=== PATIENT | female | born 1990 | race Caucasian/White ===

== ENCOUNTER 2017-06-04 20:21 | Emergency (ER) | payer MEDICAID ==
[2017-06-04] MEDS ORDERED: PROVENTIL 2.5 MG/3 ML NEB IH ONE ×2 (20:44→20:58)
[2017-06-04] MEDS ORDERED: BENADRYL 50 MG/ML IM ONE (20:44)
[2017-06-04] MEDS ORDERED: Pepcid 20 MG PO ONE (20:44)
[2017-06-04] MEDS ORDERED: MOTRIN 600 MG PO ONE (20:44)
[2017-06-04] MEDS ORDERED: MOTRIN 600 MG ONE (20:47)
[2017-06-04] MEDS ORDERED: Pepcid 20 MG ONE (20:47)
[2017-06-04] MEDS ORDERED: BENADRYL 50 MG/ML ONE (20:47)
--- NOTE | 2017-06-04 20:50 | ERPHSYRPT ---
- History of Present Illness Time Seen by Provider: 06/04/17 20:39 Source: patient, family Patient Subjective Stated Complaint: pt states she was stung multiple times by bees while getting firewood. Triage Nursing Assessment: pt alert and oriented, asnwers questions approp. pt ambulatory with limping gait noted. respirations nonlabored with lungs cta. red swollen area noted above rt knee, rt lateral upper thing, rt upper arm and rt axilla, rt face. Physician History: CC: bee stings hX: 26 y/o patient with prior hx of swelling from bee stings. She was stung by bees that came out of a wood pile this evening. She has stings on right arm, leg , neck. No diff breathing but has recent cold symptoms and is a smoker. She has no V/D. Some itching, pain and swelling at the sting sites. LMP last month and states not . Allergic to some unknown abtx. Timing/Duration: today Quality: itchy, painful Severity: moderate Allergies/Adverse Reactions: linaclotide [From Linzess] Allergy (Verified 06/04/17 20:46) unknown antibiotics Allergy (Uncoded 06/04/17 20:46) Hx Tetanus, Diphtheria Vaccination/Date Given: Yes (2014) Hx Influenza Vaccination/Date Given: No Hx Pneumococcal Vaccination/Date Given: No Immunizations Up to Date: Yes - Review of Systems Constitutional: No Fever, No Chills Eyes: No Symptoms Ears, Nose, & Throat: No Mouth Swelling Respiratory: No Dyspnea, No Wheezing Cardiac: No Chest Pain Abdominal/Gastrointestinal: No Abdominal Pain, No Nausea, No Vomiting, No Diarrhea Skin: Pruritis, Skin Lesions Neurological: No Headache All Other Systems: Reviewed and Negative - Past Medical History Pertinent Past Medical History: No - Past Surgical History Past Surgical History: Yes Gastrointestinal: Cholecystectomy Female Surgical History: Other Other Surgical History: rt ovarian cyst removed - Social History Smoking Status: Current every day smoker How long have you smoked: 10 Exposure to second hand smoke: Yes Drug Use: none Patient Lives Alone: No - Female History Hx Last Menstrual Period: end of last month - Nursing Vital Signs Nursing Vital Signs: Initial Vital Signs Temperature 97.8 F 06/04/17 20:30 Pulse Rate 102 H 06/04/17 20:30 Respiratory Rate 20 06/04/17 20:30 Blood Pressure 136/66 06/04/17 20:30 O2 Sat by Pulse Oximetry 99 06/04/17 20:30 Pain Scale Pain Intensity 0 - Physical Exam General Appearance: alert Eye Exam: PERRL/EOMI Ears, Nose, Throat Exam: normal ENT inspection, moist mucous membranes, other ( no swelling of mucous membranes) Neck Exam: normal inspection, non-tender, supple Respiratory Exam: wheezing (rare, no distress) Cardiovascular Exam: regular rate/rhythm Gastrointestinal/Abdomen Exam: soft, No tenderness, No distention Back Exam: normal inspection, normal range of motion Extremity Exam: normal range of motion Neurologic Exam: alert, oriented x 3, cooperative, sensation nml, No motor deficits Skin Exam: warm, dry, other (multiple sting sites right arm, leg, neck. The inner upper right arm is red and swollen with moderately severe local reaction.) SpO2 Interpretation: normal SpO2: 99 Oxygen Delivery: Room Air - Course Nursing assessment & vital signs reviewed: Yes Ordered Tests: Active Orders 24 hr Category Date Time Status Respiratory Nebulizer STAT RT 06/04/17 20:45 Completed Medication Summary Discontinued Medications Generic Name Dose Route Start Last Admin Trade Name Freq PRN Reason Stop Dose Admin Albuterol Sulfate 2.5 mg 06/04/17 20:44 06/04/17 20:59 Proventil 2.5 Mg/3 Ml Neb IH 06/04/17 20:45 2.5 mg STAT ONE Administration Albuterol Sulfate Confirm 06/04/17 20:58 Proventil 2.5 Mg/3 Ml Neb Administered 06/04/17 20:59 Dose 2.5 mg IH .STK-MED ONE Diphenhydramine HCl 50 mg 06/04/17 20:44 06/04/17 20:49 Benadryl 50 Mg/Ml IM 06/04/17 20:45 50 mg STAT ONE Administration Diphenhydramine HCl Confirm 06/04/17 20:47 Benadryl 50 Mg/Ml Administered 06/04/17 20:48 Dose 50 mg .ROUTE .STK-MED ONE Famotidine 20 mg 06/04/17 20:44 06/04/17 20:49 Pepcid 20 Mg PO 06/04/17 20:45 20 mg STAT ONE Administration Famotidine Confirm 06/04/17 20:47 Pepcid 20 Mg Administered 06/04/17 20:48 Dose 20 mg .ROUTE .STK-MED ONE Ibuprofen 600 mg 06/04/17 20:44 06/04/17 20:48 Motrin 600 Mg PO 06/04/17 20:45 600 mg STAT ONE Administration Ibuprofen Confirm 06/04/17 20:47 Motrin 600 Mg Administered 06/04/17 20:48 Dose 600 mg .ROUTE .STK-MED ONE - Progress Progress Note: 06/04/17 20:49 The patient appears to have local reaction to bee stings. Will give benadryl and pepcid and motrin and watch for a period of ER observation. No signo of systemic reaction at this time. Plan explained to pt and familky. 06/04/17 21:40 She was given motrin and benadryl and now feels better. No sign of systemic reaction. Will release with sting instructions. Counseled pt/family regarding: diagnosis, need for follow-up - Departure Time of Disposition: 21:40 Departure Disposition: Home Clinical Impression: Accidental bee sting Condition: Stable Critical Care Time: No Referrals: ALEKSANDRA GUTIERREZ [Primary Care Provider] - Instructions: Insect Bites and Stings Additional Instructions: Benadryl=diphenhydramine 50mg every 6 hours- no driving. Calamine lotion. Ibuprofen for discomfort. Return for difficulty breathing, concerns. Prescriptions: Diphenhydramine HCl 50 mg PO Q6H PRN PRN #20 capsule PRN Reason: bee sting Ibuprofen 600 mg PO Q6H PRN PRN #20 tablet PRN Reason: Pain
[2017-06-04] MEDS ORDERED: BENADRYL 25 MG CAPSULE ONE (21:47)
[2017-06-04] MEDS: BENADRYL 25 MG CAPSULE PO ONE ×2 (21:49→21:50)
[2017-06-04 21:54] VITALS: BP 108/67; PULSE 102; O2SAT 98
== END 2017-06-04 21:54 | disposition home or self-care (01) ==
LOC: ED 20:21
DX: T63.441A Toxic effect of venom of bees, accidental (unintentional), initial encounter (principal)
CPT/HCPCS: 94640; 96372; 99283; 99284; J1200; A9270-GY

== ENCOUNTER 2017-09-01 13:42 | Emergency (ER) | payer MEDICARE ==
[2017-09-01] MEDS ORDERED: Sodium Chloride 0.9% 1000 ML 1,000 ML IV STA (14:06)
[2017-09-01 14:08] LABS: Appearance CLEAR (CLEAR); Glucose NEGATIVE (NEGATIVE); Ketones NEGATIVE (NEGATIVE); Leukocyte Esterase NEGATIVE (NEGATIVE); Nitrite NEGATIVE (NEGATIVE); Protein,Urine Dip NEGATIVE (Negative); Specific Gravity 1.005 (1.005-1.025)
[2017-09-01] MEDS ORDERED: Sodium Chloride 0.9% 1000 ML 1,000 ML ONE (14:08)
[2017-09-01 14:09] LABS: Bilirubin NEGATIVE (NEGATIVE); Blood NEGATIVE Ery/ul (0-5); Urobilinogen NORMAL mg/dL (0-1)
--- NOTE | 2017-09-01 14:09 | ERPHSYRPT ---
- History of Present Illness Time Seen by Provider: 09/01/17 13:56 Historian: patient, family (father) Patient Subjective Stated Complaint: pt here for left sided abd pain that radiates to left flank area Triage Nursing Assessment: pt alert, walked in, resp easy, skin w/d pink, abd soft Physician History: CC: left side pain Hx: 26 y/o healthy patient with prior ovarian cyst and cholecystectomy. She has left flank and abd pain since yesterday. She has urinary frequency and urgency with little urination. No fever. Vomited once yesterday. Sick taste in her mouth. LMP in Jul. Allergies/Adverse Reactions: amoxicillin Allergy (Verified 09/01/17 13:59) clarithromycin [From Biaxin] Allergy (Verified 09/01/17 13:59) dicyclomine Allergy (Verified 09/01/17 13:59) fluconazole [From Diflucan] Allergy (Verified 09/01/17 13:59) glycopyrrolate Allergy (Verified 09/01/17 13:59) linaclotide [From Linzess] Allergy (Verified 06/04/17 20:46) metronidazole [From Flagyl] Allergy (Verified 09/01/17 13:59) Hx Tetanus, Diphtheria Vaccination/Date Given: Yes (2014) Hx Influenza Vaccination/Date Given: Yes Hx Pneumococcal Vaccination/Date Given: No Immunizations Up to Date: Yes - Review of Systems Constitutional: Malaise, No Fever, No Chills Eyes: No Symptoms Ears, Nose, & Throat: No Symptoms Respiratory: No Cough, No Dyspnea Cardiac: No Chest Pain Abdominal/Gastrointestinal: Abdominal Pain, Nausea, Vomiting (X1 yesterday), No Diarrhea Genitourinary Symptoms: Frequency, Hesitancy, Urgency, No Dysuria, No , No Vaginal Bleeding Musculoskeletal: No Back Pain Skin: No Rash Neurological: No Headache All Other Systems: Reviewed and Negative - Past Medical History Pertinent Past Medical History: No - Past Surgical History Past Surgical History: Yes Gastrointestinal: Cholecystectomy Female Surgical History: Other Other Surgical History: rt ovarian cyst removed - Social History Smoking Status: Current every day smoker How long have you smoked: 10 Exposure to second hand smoke: Yes Drug Use: none Patient Lives Alone: No - Female History Hx Last Menstrual Period: dec Hx Now: (HCG pending) - Nursing Vital Signs Nursing Vital Signs: Initial Vital Signs Temperature 97.2 F 09/01/17 13:46 Pulse Rate 76 09/01/17 13:46 Respiratory Rate 18 09/01/17 13:46 Blood Pressure 125/77 09/01/17 13:46 O2 Sat by Pulse Oximetry 99 09/01/17 13:46 Pain Scale Pain Intensity 7 - Physical Exam General Appearance: alert, thin Eye Exam: PERRL/EOMI Ears, Nose, Throat Exam: normal ENT inspection, moist mucous membranes Neck Exam: normal inspection, non-tender, supple Respiratory Exam: normal breath sounds Cardiovascular Exam: regular rate/rhythm Gastrointestinal/Abdomen Exam: soft, tenderness (left mild), No distention, No mass, No guarding Back Exam: CVA tenderness (left), No rash Extremity Exam: normal inspection, normal range of motion Neurologic Exam: alert, oriented x 3, cooperative, sensation nml, No motor deficits Skin Exam: warm, dry, No rash SpO2 Interpretation: normal SpO2: 99 Oxygen Delivery: Room Air - Course Nursing assessment & vital signs reviewed: Yes - CT Exams abd/pelvis CT Interpretation: Negative (fecal stasis), Tele-radiologist Report Ordered Tests: Active Orders 24 hr Category Date Time Status IV Insertion STAT Care 09/01/17 14:06 Active ABDOMEN AND PELVIS W/0 CONTRAS [CT] Stat Exams 09/01/17 14:06 Taken CBC W DIFF Stat Lab 09/01/17 14:16 Completed CMP Stat Lab 09/01/17 14:16 Completed HCG,QUALITATIVE URINE Stat Lab 09/01/17 14:00 Completed LIPASE Stat Lab 09/01/17 14:16 Completed UA W/RFX UR CULTURE Stat Lab 09/01/17 14:00 Completed Medication Summary Discontinued Medications Generic Name Dose Route Start Last Admin Trade Name Freq PRN Reason Stop Dose Admin Diphenhydramine HCl 25 mg 09/01/17 15:08 Benadryl 50 Mg/Ml IV 09/01/17 15:09 STAT ONE Sodium Chloride 1,000 mls @ 999 mls/hr 09/01/17 14:06 09/01/17 14:24 Sodium Chloride 0.9% 1000 Ml IV 09/01/17 15:06 999 mls/hr .Q1H1M STA Administration Sodium Chloride Confirm 09/01/17 14:08 Sodium Chloride 0.9% 1000 Ml Administered 09/01/17 14:09 Dose 1,000 mls @ ud .ROUTE .STK-MED ONE Ketorolac Tromethamine 30 mg 09/01/17 15:08 Toradol 30 Mg Injection IV 09/01/17 15:09 STAT ONE Lab/Rad Data: Laboratory Result Diagrams 09/01/17 14:16 09/01/17 14:16 Laboratory Results 09/01/17 09/01/17 09/01/17 Range/Units 14:16 14:16 14:00 WBC 4.1 (4.0-10.5) K/mm3 RBC 5.18 (4.1-5.4) M/mm3 Hgb 14.7 (12.0-16.0) gm/dl Hct 45.0 (35-47) % MCV 86.9 (78-100) fl MCH 28.4 (26-32) pg MCHC 32.7 (32-36) g/dl RDW 14.0 (11.5-14.0) % Plt Count 212 (150-450) K/mm3 MPV 11.5 H (6-9.5) fl Gran % 39.4 (36.0-66.0) % Lymphocytes % 47.9 H (24.0-44.0) % Monocytes % 8.8 (0.0-12.0) % Eosinophils % 3.7 (0.00-5.0) % Basophils % 0.2 (0.0-0.4) % Basophils # 0.01 (0-0.4) Sodium 138 (136-145) mEq/L Potassium 3.8 (3.5-5.1) mEq/L Chloride 102 (98-107) mEq/L Carbon Dioxide 27.1 (21-32) mEq/L Anion Gap 13.0 (5-15) MEQ/L BUN 8 L (9-20) mg/dL Creatinine 0.71 (0.55-1.30) mg/dl Estimated GFR > 60 ML/MIN Glucose 99 (70-110) MG/DL Calcium 9.0 (8.5-10.1) mg/dL Total Bilirubin 0.20 (0.2-1.0) mg/dL AST 22 (15-37) U/L ALT 19 (12-78) U/L Alkaline Phosphatase 52 (46-116) U/L Serum Total Protein 7.6 (6.4-8.2) gm/dL Albumin 3.9 (3.4-5.0) g/dL Lipase 74 (73-393) U/L Ur Collection Type Urine Color (YELLOW) Urine Appearance (CLEAR) Urine pH (5-6) Ur Specific [place] (1.005-1.025) Urine Protein (Negative) Urine Ketones (NEGATIVE) Urine Blood (0-5) Yovany/ul Urine Nitrite (NEGATIVE) Urine Bilirubin (NEGATIVE) Urine Urobilinogen (0-1) mg/dL Ur Leukocyte Esterase (NEGATIVE) Urine Culture Reflexed (NO) Urine Glucose (NEGATIVE) mg/dL Urine HCG, Qual NEGATIVE (Negative) Specimen Received 09/01/17 Range/Units 14:00 WBC (4.0-10.5) K/mm3 RBC (4.1-5.4) M/mm3 Hgb (12.0-16.0) gm/dl Hct (35-47) % MCV (78-100) fl MCH (26-32) pg MCHC (32-36) g/dl RDW (11.5-14.0) % Plt Count (150-450) K/mm3 MPV (6-9.5) fl Gran % (36.0-66.0) % Lymphocytes % (24.0-44.0) % Monocytes % (0.0-12.0) % Eosinophils % (0.00-5.0) % Basophils % (0.0-0.4) % Basophils # (0-0.4) Sodium (136-145) mEq/L Potassium (3.5-5.1) mEq/L Chloride (98-107) mEq/L Carbon Dioxide (21-32) mEq/L Anion Gap (5-15) MEQ/L BUN (9-20) mg/dL Creatinine (0.55-1.30) mg/dl Estimated GFR ML/MIN Glucose (70-110) MG/DL Calcium (8.5-10.1) mg/dL Total Bilirubin (0.2-1.0) mg/dL AST (15-37) U/L ALT (12-78) U/L Alkaline Phosphatase (46-116) U/L Serum Total Protein (6.4-8.2) gm/dL Albumin (3.4-5.0) g/dL Lipase (73-393) U/L Ur Collection Type CCMS Urine Color YELLOW (YELLOW) Urine Appearance CLEAR (CLEAR) Urine pH 8.0 (5-6) Ur Specific [place] 1.005 (1.005-1.025) Urine Protein NEGATIVE (Negative) Urine Ketones NEGATIVE (NEGATIVE) Urine Blood NEGATIVE (0-5) Yovany/ul Urine Nitrite NEGATIVE (NEGATIVE) Urine Bilirubin NEGATIVE (NEGATIVE) Urine Urobilinogen NORMAL (0-1) mg/dL Ur Leukocyte Esterase NEGATIVE (NEGATIVE) Urine Culture Reflexed NO (NO) Urine Glucose NEGATIVE (NEGATIVE) mg/dL Urine HCG, Qual (Negative) Specimen Received 1400 09/01/17 - Progress Progress Note: 09/01/17 14:52 Pt declined pain meds here. 09/01/17 15:10 She still has some discomfort. Benadryl and toradol given. She wants to have pelvic exam thru Dr Amaral. Will use NSAID. ST showed fluid and fecal stasis , reassuring. Possible ovarian cyst? No sign of renal stone disease or UTI. Counseled pt/family regarding: lab results, diagnosis, need for follow-up, rad results - Departure Time of Disposition: 15:11 Departure Disposition: Home Clinical Impression: Left lateral abdominal pain Ovarian cyst Qualifiers: Laterality: left Qualified Code(s): N83.202 - Unspecified ovarian cyst, left side Condition: Stable Critical Care Time: No Referrals: ALEKSANDRA GUTIERREZ [Primary Care Provider] - Instructions: Abdominal Pain-Adult, Ovarian Cyst Additional Instructions: ABDOMINAL PAIN 1. There are several different causes for abdominal pain, some of which may not be able to be identified on initial examination. 2. The important thing to remember is that bodily functions can change in a short period of time. If you notice any of the following symptoms, return to the emergency department or consult your doctor immediately: A. Worsening pain or no improvement in the next 12 hours. B. Increasing, severe abdominal pain C. Blood in stool D. Black stools E. Persistent vomiting F. Fever or chills or other symptoms Rx naproxen. Follow up with Dr Ibanez next week. Return for problems or concerns. Prescriptions: Naproxen 500 mg [Naprosyn 500 MG] 500 tab PO BID #15 tablet
[2017-09-01 14:19] LABS: BASOPHIL % 0.2 % (0.0-0.4); Basophil (Absolute #) 0.01 (0-0.4); Eosinophil % 3.7 % (0.00-5.0); Eosinophil (Absolute #) 0.15 (0-0.5); Granulocyte Absolute (ANC) 1.61 (1.4-6.9); Granulocytes % 39.4 % (36.0-66.0); Hemoglobin 14.7 gm/dl (12.0-16.0); Lymphocyte (Absolute #) 1.96 (1.0-4.6); Lymphocytes % 47.9 % (24.0-44.0); Mean Cell Volume 86.9 fl (78-100); Mean Corpuscular Hemoglobin 28.4 pg (26-32); Mean Corpuscular Hgb Concent. 32.7 g/dl (32-36); Mean Platelet Volume 11.5 fl (6-9.5); Monocyte (Absolute #) 0.36 (0.0-1.3); Monocytes % 8.8 % (0.0-12.0); Platelet Count 212 K/mm3 (150-450); Red Blood Count 5.18 M/mm3 (4.1-5.4); White Blood Count 4.1 K/mm3 (4.0-10.5)
[2017-09-01 14:42] LABS: ALBUMIN 3.9 g/dL (3.4-5.0); ALKALINE PHOSPHATASE 52 U/L (46-116); BLOOD UREA NITROGEN 8 mg/dL (9-20); CHLORIDE 102 mEq/L (98-107); Carbon Dioxide 27.1 mEq/L (21-32); Creatinine 1 0.71 mg/dl (0.55-1.30); EST GLOMERULAR FILTRATION RATE > 60 ML/MIN; Glucose 99 MG/DL (70-110); LIPASE 74 U/L (73-393); Potassium 3.8 mEq/L (3.5-5.1); SGOT/AST 22 U/L (15-37); SGPT/ALT 19 U/L (12-78); SODIUM 138 mEq/L (136-145); Total Protein 7.6 gm/dL (6.4-8.2)
[2017-09-01] MEDS ORDERED: TORAdol 30 mg Injection IV ONE (15:08)
[2017-09-01] MEDS ORDERED: BENADRYL 50 MG/ML IV ONE (15:08)
--- NOTE | 2017-09-01 15:11 | XRAY ---
Indication: Left flank pain. Multiple contiguous axial images obtained through the abdomen and pelvis without contrast using renal stone protocol. Comparison: None Calcified granuloma in the medial right lung base. Lung bases otherwise clear. Heart is not enlarged. No renal calculus or evidence for obstructive uropathy in either system. Uterus is prominent with thickened endometrial stripe. 1.5 cm right ovary cyst. Small cul-de-sac fluid presumed physiologic from rupture/leaking cyst. Stomach is mildly distended with fluid/fluid. Noncontrasted stomach and bowel loops appear nonobstructed. Mild diffuse scattered colonic fecal debris throughout. Radiopacity throughout the left hemicolon and sigmoid presumed ingested medication. Previous cholecystectomy. Remaining liver, pancreas, spleen, adrenal glands, kidneys, ureters, bladder, and aorta appear unremarkable for noncontrast exam. Osseous structures intact. Impression: 1. Negative renal calculus or evidence for obstructive uropathy. 2. Prominent uterus with endometrial thickening. Correlate with menstrual cycle. Small cul-de-sac fluid presumed physiologic from rupture/leaking cyst. 2. Mild fecal stasis without obstruction. CT DI 10.91
[2017-09-01] MEDS ORDERED: BENADRYL 50 MG/ML ONE (15:13)
[2017-09-01] MEDS ORDERED: TORAdol 30 mg Injection ONE (15:13)
[2017-09-01 15:38] VITALS: BP 100/59; PULSE 78; O2SAT 98
== END 2017-09-01 15:38 | disposition home or self-care (01) ==
LOC: ED 13:42
DX: R10.9 Unspecified abdominal pain (principal); R35.0 Frequency of micturition; R39.15 Urgency of urination
CPT/HCPCS: 36000; 36415; 74176; 80053; 81002; 83690; 84703; 85025; 96360; 99284; J1200; J1885

== ENCOUNTER 2017-10-18 11:12 | Emergency (ER) | payer MEDICARE ==
--- NOTE | 2017-10-18 11:49 | ERPHSYRPT ---
- History of Present Illness Time Seen by Provider: 10/18/17 11:40 Source: patient Exam Limitations: no limitations Patient Subjective Stated Complaint: pt co bilat. lower leg pain for 2 weeks, pain is constant, she was seen and had doppler and in was neg,no relief from motrin, pt denies any injury Triage Nursing Assessment: pt alert, resp easy. skin w/d/p. walked in, no edema or brusing noted to legs Physician History: 27 y/o female comes to the ER with 2 week history of bilateral leg pain. Pt was seen last week for doppler of both legs which did not show any DVT. The patient describes the pain as sharp, constant, 10/10 and not relieved by motrin. No known injury. No swelling, fever or chills. Pt also denies any chest pain or shortness of breath. Method of Injury: unknown Occurred: days ago Quality: constant Severity of Pain-Max: severe Severity of Pain-Current: severe Lower Extremities Pain: hip: bilateral, leg: bilateral, knee: bilateral, thigh: bilateral, foot: bilateral, ankle: bilateral Modifying Factors: Improves With: nothing Associated Symptoms: none Allergies/Adverse Reactions: amoxicillin Allergy (Verified 10/18/17 11:29) clarithromycin [From Biaxin] Allergy (Verified 10/18/17 11:29) dicyclomine Allergy (Verified 10/18/17 11:29) fluconazole [From Diflucan] Allergy (Verified 10/18/17 11:29) glycopyrrolate Allergy (Verified 10/18/17 11:29) linaclotide [From Linzess] Allergy (Verified 10/18/17 11:29) metronidazole [From Flagyl] Allergy (Verified 10/18/17 11:29) Hx Tetanus, Diphtheria Vaccination/Date Given: Yes (2014) Hx Influenza Vaccination/Date Given: Yes Hx Pneumococcal Vaccination/Date Given: No Immunizations Up to Date: Yes - Review of Systems Constitutional: No Fever, No Chills Eyes: No Symptoms Ears, Nose, & Throat: No Symptoms Respiratory: No Cough, No Dyspnea Cardiac: No Chest Pain, No Edema, No Syncope Abdominal/Gastrointestinal: No Abdominal Pain, No Nausea, No Vomiting, No Diarrhea Genitourinary Symptoms: No Dysuria Musculoskeletal: Myalgias, No Back Pain, No Neck Pain Skin: No Rash Neurological: No Dizziness, No Focal Weakness, No Sensory Changes Psychological: No Symptoms Endocrine: No Symptoms All Other Systems: Reviewed and Negative - Past Medical History Pertinent Past Medical History: No - Past Surgical History Past Surgical History: Yes Gastrointestinal: Cholecystectomy Female Surgical History: Other Other Surgical History: rt ovarian cyst removed - Social History Smoking Status: Current every day smoker How long have you smoked: 10 Exposure to second hand smoke: Yes Drug Use: none Patient Lives Alone: No - Female History Hx Last Menstrual Period: last week Hx Now: No - Nursing Vital Signs Nursing Vital Signs: Initial Vital Signs Temperature 98.8 F 10/18/17 11:22 Pulse Rate 84 10/18/17 11:22 Respiratory Rate 16 10/18/17 11:22 Blood Pressure 113/62 10/18/17 11:22 O2 Sat by Pulse Oximetry 100 10/18/17 11:22 Pain Scale Pain Intensity 8 - Physical Exam General Appearance: alert Eyes, Ears, Nose, Throat Exam: moist mucous membranes Neck Exam: non-tender, supple Cardiovascular/Respiratory Exam: chest non-tender, normal breath sounds, regular rate/rhythm, no respiratory distress Gastrointestinal/Abdominal Exam: non-tender, guarding Back Exam: normal inspection, No vertebral tenderness Hips Exam: bilateral: non-tender, normal inspection, normal range of motion, no evidence of injury Legs Exam: bilateral leg: non-tender, normal inspection, normal range of motion , no evidence of injury Knees Exam: bilateral knee: non-tender, normal inspection, normal range of motion, no evidence of injury Ankle Exam: bilateral ankle: non-tender, normal inspection, normal range of motion, no evidence of injury Foot Exam: bilateral foot: non-tender, normal inspection, normal range of motion , no evidence of injury Neuro/Tendon Exam: normal sensation, normal motor functions Mental Status Exam: alert, oriented x 3, cooperative Skin Exam: normal color, warm, dry SpO2: 100 Oxygen Delivery: Room Air - Course Nursing assessment & vital signs reviewed: Yes Ordered Tests: Active Orders 24 hr Category Date Time Status FEMUR Stat Exams 10/18/17 12:09 Completed FEMUR Stat Exams 10/18/17 12:46 Completed LOWER LEG Stat Exams 10/18/17 12:46 Completed LOWER LEG Stat Exams 10/18/17 12:46 Completed CBC W DIFF Stat Lab 10/18/17 12:17 Completed CK-Creatinine Phosphokinase Stat Lab 02/21/18 12:17 Completed CMP Stat Lab 10/18/17 12:17 Completed CRP, HIGH SENSITIVITY Stat Lab 10/18/17 12:17 Completed Erythrocyte Sedimentation Rate Stat Lab 10/18/17 12:17 Completed HCG QUALITATIVE,SERUM Stat Lab 10/18/17 12:17 Completed RHEUMATOID FACTOR Stat Lab 10/18/17 12:17 Completed Medication Summary Discontinued Medications Generic Name Dose Route Start Last Admin Trade Name Marcos PRN Reason Stop Dose Admin Tramadol HCl 50 mg 10/18/17 12:20 10/18/17 12:47 Ultram 50 Mg PO 10/18/17 12:21 50 mg STAT ONE Administration Tramadol HCl Confirm 10/18/17 12:41 Ultram 50 Mg Administered 10/18/17 12:42 Dose 50 mg .ROUTE .[facility] ONE Lab/Rad Data: Laboratory Result Diagrams 10/18/17 12:17 10/18/17 12:17 Laboratory Results 10/18/17 10/18/17 10/18/17 Range/Units 12:17 12:17 12:17 WBC (4.0-10.5) K/mm3 RBC (4.1-5.4) M/mm3 Hgb (12.0-16.0) gm/dl Hct (35-47) % MCV (78-100) fl MCH (26-32) pg MCHC (32-36) g/dl RDW (11.5-14.0) % Plt Count (150-450) K/mm3 MPV (6-9.5) fl Gran % (36.0-66.0) % Lymphocytes % (24.0-44.0) % Monocytes % (0.0-12.0) % Eosinophils % (0.00-5.0) % Basophils % (0.0-0.4) % Basophils # (0-0.4) ESR (0-20) mm/hr Sodium 141 (136-145) mEq/L Potassium 3.8 (3.5-5.1) mEq/L Chloride 106 (98-107) mEq/L Carbon Dioxide 27.2 (21-32) mEq/L Anion Gap 11.5 (5-15) MEQ/L BUN 9 (9-20) mg/dL Creatinine 0.61 (0.55-1.30) mg/dl Estimated GFR > 60 ML/MIN Glucose 97 (70-110) MG/DL Calcium 9.0 (8.5-10.1) mg/dL Total Bilirubin 0.30 (0.2-1.0) mg/dL AST 16 (15-37) U/L ALT 14 (12-78) U/L Alkaline Phosphatase 40 L (46-116) U/L Creatine Kinase 57 (26-192) U/L C-React Prot High Sens 2.24 (0.0-3.0) mg/L Serum Total Protein 7.2 (6.4-8.2) gm/dL Albumin 3.9 (3.4-5.0) g/dL Serum , Qual NEGATIVE (Negative) Rheumatoid Factor Scrn NEGATIVE (Negative) 10/18/17 Range/Units 12:17 WBC 4.0 (4.0-10.5) K/mm3 RBC 4.73 (4.1-5.4) M/mm3 Hgb 13.8 (12.0-16.0) gm/dl Hct 41.3 (35-47) % MCV 87.3 (78-100) fl MCH 29.2 (26-32) pg MCHC 33.4 (32-36) g/dl RDW 13.9 (11.5-14.0) % Plt Count 253 (150-450) K/mm3 MPV 10.8 H (6-9.5) fl Gran % 37.9 (36.0-66.0) % Lymphocytes % 48.0 H (24.0-44.0) % Monocytes % 9.8 (0.0-12.0) % Eosinophils % 3.8 (0.00-5.0) % Basophils % 0.5 (0.0-0.4) % Basophils # 0.02 (0-0.4) ESR 2 (0-20) mm/hr Sodium (136-145) mEq/L Potassium (3.5-5.1) mEq/L Chloride (98-107) mEq/L Carbon Dioxide (21-32) mEq/L Anion Gap (5-15) MEQ/L BUN (9-20) mg/dL Creatinine (0.55-1.30) mg/dl Estimated GFR ML/MIN Glucose (70-110) MG/DL Calcium (8.5-10.1) mg/dL Total Bilirubin (0.2-1.0) mg/dL AST (15-37) U/L ALT (12-78) U/L Alkaline Phosphatase (46-116) U/L Creatine Kinase (26-192) U/L C-React Prot High Sens (0.0-3.0) mg/L Serum Total Protein (6.4-8.2) gm/dL Albumin (3.4-5.0) g/dL Serum , Qual (Negative) Rheumatoid Factor Scrn (Negative) - Progress Progress: improved Progress Note: 10/18/17 13:25 Pt feels better after receiving tramadol. The x ray of the bilateral lower extremities are within normal limits. The labs are unremarkable. The patient will be given a script for tramadol and will F/U with PCP. - Departure Time of Disposition: 13:26 Departure Disposition: Home Clinical Impression: Leg pain, bilateral Condition: Stable Critical Care Time: No Referrals: ALEKSANDRA GUTIERREZ [Primary Care Provider] - Instructions: Muscle and Bone Pain (DC) Additional Instructions: Follow up with your primary care provider for additional recommendations. Prescriptions: Tramadol HCl 50 mg [Ultram 50 mg] 50 mg PO QID PRN #12 tablet PRN Reason: Pain
[2017-10-18] MEDS ORDERED: ULTRAM 50 MG PO ONE (12:20)
[2017-10-18 12:23] LABS: BASOPHIL % 0.5 % (0.0-0.4); Basophil (Absolute #) 0.02 (0-0.4); Eosinophil % 3.8 % (0.00-5.0); Eosinophil (Absolute #) 0.15 (0-0.5); Granulocytes % 37.9 % (36.0-66.0); Hematocrit 41.3 % (35-47); Hemoglobin 13.8 gm/dl (12.0-16.0); Mean Cell Volume 87.3 fl (78-100); Mean Corpuscular Hemoglobin 29.2 pg (26-32); Mean Corpuscular Hgb Concent. 33.4 g/dl (32-36); Mean Platelet Volume 10.8 fl (6-9.5); Monocyte (Absolute #) 0.39 (0.0-1.3); Monocytes % 9.8 % (0.0-12.0); Platelet Count 253 K/mm3 (150-450); Red Blood Count 4.73 M/mm3 (4.1-5.4); Red Cell Distribution Width 13.9 % (11.5-14.0)
[2017-10-18] MEDS ORDERED: ULTRAM 50 MG ONE (12:41)
--- NOTE | 2017-10-18 12:52 | XRAY ---
Indication: Pain. No known injury. Comparison: None 2 views of the right femur demonstrates normal bones, articulation, and soft tissues with incidental posterior knee fabella.
--- NOTE | 2017-10-18 12:54 | XRAY ---
Indication: Pain. No known injury. Comparison: None 2 views of the left lower leg demonstrates normal bones, articulation, and soft tissues.
--- NOTE | 2017-10-18 12:54 | XRAY ---
Indication: Pain. No known injury. Comparison: None 2 views of the left femur demonstrates normal bones, articulation, and soft tissues.
[2017-10-18 12:57] LABS: ALBUMIN 3.9 g/dL (3.4-5.0); ALKALINE PHOSPHATASE 40 U/L (46-116); ANION GAP 11.5 MEQ/L (5-15); BLOOD UREA NITROGEN 9 mg/dL (9-20); CHLORIDE 106 mEq/L (98-107); CK-Creatinine Phosphokinase 57 U/L (26-192); Carbon Dioxide 27.2 mEq/L (21-32); Creatinine 1 0.61 mg/dl (0.55-1.30); EST GLOMERULAR FILTRATION RATE > 60 ML/MIN; Glucose 97 MG/DL (70-110); Potassium 3.8 mEq/L (3.5-5.1); SGOT/AST 16 U/L (15-37); SGPT/ALT 14 U/L (12-78); SODIUM 141 mEq/L (136-145); Total Protein 7.2 gm/dL (6.4-8.2)
--- NOTE | 2017-10-18 13:04 | XRAY ---
Indication: Pain. No known injury. Comparison: None 2 views of the right lower leg demonstrates normal bones, articulation, and soft tissues with incidental posterior knee fabella.
[2017-10-18 13:22] LABS: Erythrocyte Sedimentation Rate 2 mm/hr (0-20)
[2017-10-18 13:28] VITALS: O2SAT 100
[2017-10-18 14:01] VITALS: BP 108/72; PULSE 76
[2017-10-19 15:15] LABS: ANA Pattern Interp Detail See Result Note:
== END 2017-10-18 14:01 | disposition home or self-care (01) ==
LOC: ED 11:12
DX: M79.662 Pain in left lower leg (principal); M79.661 Pain in right lower leg
CPT/HCPCS: 36415; 73552; 73590; 80053; 82550; 84703; 85025; 85652; 86038; 86140; 86430; 99283; 99284; A9270-GY

== ENCOUNTER 2018-02-19 14:02 | Emergency (ER) | payer MEDICARE ==
--- NOTE | 2018-02-19 14:48 | ERPHSYRPT ---
- History of Present Illness Time Seen by Provider: 02/19/18 14:39 Historian: patient Exam Limitations: no limitations Patient Subjective Stated Complaint: pt reports low abd pain beginning [place] 1 wk ago-states that she has had diarrhea for 2 days-noticed medium red blood in stool last night-denies fever Triage Nursing Assessment: pt pink warm and [id number] soft and tender to palp-resp easy and nonlabored Physician History: The patient is a 27-year-old female with her friend complaining of lower abdominal pain for a week and diarrhea for 2 days. Yesterday she noted some light colored blood in her stools. She takes no medicines. She walked here with her friend to be seen for about 6 miles. He took the patient to and a half hours to get here. She denies vomiting or nausea. She denies fever. Her last menstrual period was January 29. Timing/Duration: week(s) (1) Activities at Onset: none Quality: aching Abdominal Pain Onset Location: RLQ, LLQ, suprapubic Pain Radiation: no radiation Severity of Pain-Max: moderate Severity of Pain-Current: moderate Modifying Factors: Improves With: nothing Associated Symptoms: diarrhea, other (blood with stools) Previous symptoms: no prior history Allergies/Adverse Reactions: amoxicillin Allergy (Verified 02/19/18 14:14) clarithromycin [From Biaxin] Allergy (Verified 02/19/18 14:14) dicyclomine Allergy (Verified 02/19/18 14:14) fluconazole [From Diflucan] Allergy (Verified 02/19/18 14:14) glycopyrrolate Allergy (Verified 02/19/18 14:14) linaclotide [From Linzess] Allergy (Verified 02/19/18 14:14) metronidazole [From Flagyl] Allergy (Verified 02/19/18 14:14) Hx Tetanus, Diphtheria Vaccination/Date Given: Yes Hx Influenza Vaccination/Date Given: Yes Hx Pneumococcal Vaccination/Date Given: No Immunizations Up to Date: Yes - Review of Systems Constitutional: No Fever, No Chills Eyes: No Symptoms Ears, Nose, & Throat: No Symptoms Respiratory: No Cough, No Dyspnea Cardiac: No Chest Pain, No Edema, No Syncope Abdominal/Gastrointestinal: Abdominal Pain, Diarrhea Genitourinary Symptoms: No Dysuria Musculoskeletal: No Back Pain, No Neck Pain Skin: No Rash Neurological: No Dizziness, No Focal Weakness, No Sensory Changes Psychological: No Symptoms Endocrine: No Symptoms Hematologic/Lymphatic: No Symptoms Immunological/Allergic: No Symptoms All Other Systems: Reviewed and Negative - Past Medical History Pertinent Past Medical History: No - Past Surgical History Past Surgical History: Yes Gastrointestinal: Cholecystectomy Female Surgical History: Other Other Surgical History: rt ovarian cyst removed - Social History Smoking Status: Current every day smoker How long have you smoked: yrs Exposure to second hand smoke: Yes Drug Use: none Patient Lives Alone: No - Female History Hx Last Menstrual Period: january 30 2018 Hx Now: No - Nursing Vital Signs Nursing Vital Signs: Initial Vital Signs Pulse Rate 99 H 02/19/18 15:05 Respiratory Rate 16 02/19/18 15:05 Blood Pressure 109/083 02/19/18 15:05 O2 Sat by Pulse Oximetry 99 02/19/18 15:05 Pain Scale Pain Intensity 0 - Physical Exam General Appearance: mild distress Eye Exam: PERRL/EOMI, eyes nml inspection Ears, Nose, Throat Exam: normal ENT inspection, pharynx normal, moist mucous membranes Neck Exam: normal inspection, non-tender, supple, full range of motion Respiratory Exam: normal breath sounds, lungs clear, No respiratory distress Cardiovascular Exam: normal heart sounds, tachycardia Gastrointestinal/Abdomen Exam: tenderness (suprapubic) Pelvic Exam: not done Rectal Exam: not done Back Exam: normal inspection, normal range of motion, No CVA tenderness, No vertebral tenderness Extremity Exam: normal inspection, normal range of motion, pelvis stable Neurologic Exam: alert, oriented x 3, cooperative, normal mood/affect, nml cerebellar function, sensation nml, No motor deficits Skin Exam: normal color, warm, dry SpO2 Interpretation: normal Oxygen Delivery: Room Air Ordered Tests: Active Orders 24 hr Category Date Time Status IV Insertion STAT Care 02/19/18 14:51 Active CBC W DIFF Stat Lab 02/19/18 15:05 Completed CMP Stat Lab 02/19/18 15:05 Completed CULTURE,URINE Stat Lab 02/19/18 15:00 Received HCG QUALITATIVE,SERUM Stat Lab 02/19/18 15:05 Completed LIPASE Stat Lab 02/19/18 15:05 Completed Lactic Acid Stat Lab 02/19/18 15:06 Completed Occult Blood,Stool Other Stat Lab 02/19/18 15:00 Completed UA W/ MICROSCOPIC Stat Lab 02/19/18 15:00 Completed Urine Triage Profile Stat Lab 02/19/18 15:00 Completed Medication Summary Discontinued Medications Generic Name Dose Route Start Last Admin Trade Name Marcos PRN Reason Stop Dose Admin Sodium Chloride 1,000 mls @ 999 mls/hr 02/19/18 14:51 02/19/18 15:14 Sodium Chloride 0.9% 1000 Ml IV 02/19/18 15:51 999 mls/hr .Q1H1M STA Administration Sodium Chloride Confirm 02/19/18 15:10 Sodium Chloride 0.9% 1000 Ml Administered 02/19/18 15:11 Dose 1,000 mls @ ud .ROUTE .STK-MED ONE Pantoprazole Sodium 40 mg 02/19/18 14:52 02/19/18 15:16 Protonix 40 Mg Iv IV 02/19/18 14:53 40 mg STAT ONE Administration Pantoprazole Sodium Confirm 02/19/18 15:10 Protonix 40 Mg Iv Administered 02/19/18 15:11 Dose 40 mg IV .STK-MED ONE Lab/Rad Data: Laboratory Result Diagrams 02/19/18 15:05 02/19/18 15:05 Laboratory Results 02/19/18 02/19/18 02/19/18 Range/Units 15:06 15:05 15:05 WBC (4.0-10.5) K/mm3 RBC (4.1-5.4) M/mm3 Hgb (12.0-16.0) gm/dl Hct (35-47) % MCV (78-100) fl MCH (26-32) pg MCHC (32-36) g/dl RDW (11.5-14.0) % Plt Count (150-450) K/mm3 MPV (6-9.5) fl Gran % (36.0-66.0) % Eos # (Auto) (0-0.5) Absolute Lymphs (auto) (1.0-4.6) Absolute Monos (auto) (0.0-1.3) Lymphocytes % (24.0-44.0) % Monocytes % (0.0-12.0) % Eosinophils % (0.00-5.0) % Basophils % (0.0-0.4) % Absolute Granulocytes (1.4-6.9) Basophils # (0-0.4) Sodium 142 (137-145) mmol/L Potassium 4.2 (3.5-5.1) mmol/L Chloride 105 (98-107) mmol/L Carbon Dioxide 22 (22-30) mmol/L Anion Gap 19.5 H (5-15) MEQ/L BUN 13 (7-17) mg/dL Creatinine 0.67 (0.52-1.04) mg/dL Estimated GFR > 60.0 ML/MIN Glucose 92 (74-106) mg/dL Lactic Acid 1.4 (0.4-2.0) Calcium 10.2 (8.4-10.2) mg/dL Total Bilirubin 0.40 (0.2-1.3) mg/dL AST 29 (14-36) U/L ALT 23 (0-35) U/L Alkaline Phosphatase 52 (38-126) U/L Serum Total Protein 9.0 H (6.3-8.2) g/dL Albumin 5.1 H (3.5-5.0) g/dL Lipase 48 (23-300) U/L Serum , Qual NEGATIVE (Negative) Ur Collection Type Urine Color (YELLOW) Urine Appearance (CLEAR) Urine pH (5-6) Ur Specific [place] (1.005-1.025) Urine Protein (Negative) Urine Ketones (NEGATIVE) Urine Blood (0-5) Yovany/ul Urine Nitrite (NEGATIVE) Urine Bilirubin (NEGATIVE) Urine Urobilinogen (0-1) mg/dL Ur Leukocyte Esterase (NEGATIVE) Urine Microscopic WBC (0-5) /HPF Ur Epithelial Cells (FEW) /HPF Urine Bacteria (NEGATIVE) /HPF Urine Culture Reflexed (NO) Urine Glucose (NEGATIVE) mg/dL Stool Occult Blood (Negative) Urine Opiates Level (NEGATIVE) Ur Methadone (NEGATIVE) Urine Barbiturates (NEGATIVE) Ur Phencyclidine (PCP) (NEGATIVE) Urine Amphetamine (NEGATIVE) U Benzodiazepine Level (NEGATIVE) Urine Cocaine (NEGATIVE) Urine Marijuana (THC) (NEGATIVE) Specimen Received 02/19/18 02/19/18 02/19/18 Range/Units 15:05 15:00 15:00 WBC 8.1 (4.0-10.5) K/mm3 RBC 5.49 H (4.1-5.4) M/mm3 Hgb 16.5 H (12.0-16.0) gm/dl Hct 46.5 (35-47) % MCV 84.7 (78-100) fl MCH 30.0 (26-32) pg MCHC 35.5 (32-36) g/dl RDW 14.0 (11.5-14.0) % Plt Count 259 (150-450) K/mm3 MPV 11.6 H (6-9.5) fl Gran % 66.4 H (36.0-66.0) % Eos # (Auto) 0.15 (0-0.5) Absolute Lymphs (auto) 2.02 (1.0-4.6) Absolute Monos (auto) 0.54 (0.0-1.3) Lymphocytes % 24.8 (24.0-44.0) % Monocytes % 6.6 (0.0-12.0) % Eosinophils % 1.8 (0.00-5.0) % Basophils % 0.4 (0.0-0.4) % Absolute Granulocytes 5.39 (1.4-6.9) Basophils # 0.03 (0-0.4) Sodium (137-145) mmol/L Potassium (3.5-5.1) mmol/L Chloride (98-107) mmol/L Carbon Dioxide (22-30) mmol/L Anion Gap (5-15) MEQ/L BUN (7-17) mg/dL Creatinine (0.52-1.04) mg/dL Estimated GFR ML/MIN Glucose (74-106) mg/dL Lactic Acid (0.4-2.0) Calcium (8.4-10.2) mg/dL Total Bilirubin (0.2-1.3) mg/dL AST (14-36) U/L ALT (0-35) U/L Alkaline Phosphatase (38-126) U/L Serum Total Protein (6.3-8.2) g/dL Albumin (3.5-5.0) g/dL Lipase (23-300) U/L Serum , Qual (Negative) Ur Collection Type Urine Color (YELLOW) Urine Appearance (CLEAR) Urine pH (5-6) Ur Specific [place] (1.005-1.025) Urine Protein (Negative) Urine Ketones (NEGATIVE) Urine Blood (0-5) Yovany/ul Urine Nitrite (NEGATIVE) Urine Bilirubin (NEGATIVE) Urine Urobilinogen (0-1) mg/dL Ur Leukocyte Esterase (NEGATIVE) Urine Microscopic WBC (0-5) /HPF Ur Epithelial Cells (FEW) /HPF Urine Bacteria (NEGATIVE) /HPF Urine Culture Reflexed (NO) Urine Glucose (NEGATIVE) mg/dL Stool Occult Blood NEGATIVE (Negative) Urine Opiates Level NEGATIVE (NEGATIVE) Ur Methadone NEGATIVE (NEGATIVE) Urine Barbiturates NEGATIVE (NEGATIVE) Ur Phencyclidine (PCP) NEGATIVE (NEGATIVE) Urine Amphetamine NEGATIVE (NEGATIVE) U Benzodiazepine Level NEGATIVE (NEGATIVE) Urine Cocaine NEGATIVE (NEGATIVE) Urine Marijuana (THC) NEGATIVE (NEGATIVE) Specimen Received 02/19/18 Range/Units 15:00 WBC (4.0-10.5) K/mm3 RBC (4.1-5.4) M/mm3 Hgb (12.0-16.0) gm/dl Hct (35-47) % MCV (78-100) fl MCH (26-32) pg MCHC (32-36) g/dl RDW (11.5-14.0) % Plt Count (150-450) K/mm3 MPV (6-9.5) fl Gran % (36.0-66.0) % Eos # (Auto) (0-0.5) Absolute Lymphs (auto) (1.0-4.6) Absolute Monos (auto) (0.0-1.3) Lymphocytes % (24.0-44.0) % Monocytes % (0.0-12.0) % Eosinophils % (0.00-5.0) % Basophils % (0.0-0.4) % Absolute Granulocytes (1.4-6.9) Basophils # (0-0.4) Sodium (137-145) mmol/L Potassium (3.5-5.1) mmol/L Chloride (98-107) mmol/L Carbon Dioxide (22-30) mmol/L Anion Gap (5-15) MEQ/L BUN (7-17) mg/dL Creatinine (0.52-1.04) mg/dL Estimated GFR ML/MIN Glucose (74-106) mg/dL Lactic Acid (0.4-2.0) Calcium (8.4-10.2) mg/dL Total Bilirubin (0.2-1.3) mg/dL AST (14-36) U/L ALT (0-35) U/L Alkaline Phosphatase (38-126) U/L Serum Total Protein (6.3-8.2) g/dL Albumin (3.5-5.0) g/dL Lipase (23-300) U/L Serum , Qual (Negative) Ur Collection Type VOID Urine Color YELLOW (YELLOW) Urine Appearance CLOUDY (CLEAR) Urine pH 5.0 (5-6) Ur Specific [place] 1.020 (1.005-1.025) Urine Protein NEGATIVE (Negative) Urine Ketones MODERATE (NEGATIVE) Urine Blood NEGATIVE (0-5) Yovany/ul Urine Nitrite NEGATIVE (NEGATIVE) Urine Bilirubin NEGATIVE (NEGATIVE) Urine Urobilinogen NORMAL (0-1) mg/dL Ur Leukocyte Esterase NEGATIVE (NEGATIVE) Urine Microscopic WBC 0-2 (0-5) /HPF Ur Epithelial Cells MODERATE (FEW) /HPF Urine Bacteria RARE (NEGATIVE) /HPF Urine Culture Reflexed YES (NO) Urine Glucose NEGATIVE (NEGATIVE) mg/dL Stool Occult Blood (Negative) Urine Opiates Level (NEGATIVE) Ur Methadone (NEGATIVE) Urine Barbiturates (NEGATIVE) Ur Phencyclidine (PCP) (NEGATIVE) Urine Amphetamine (NEGATIVE) U Benzodiazepine Level (NEGATIVE) Urine Cocaine (NEGATIVE) Urine Marijuana (THC) (NEGATIVE) Specimen Received 02/19 1515 - Progress Progress: improved Progress Note: 02/19/18 16:52 Pt given protonix 40 mg and fluids by IV. Pt was in hurry to leave and did not want further testing. Counseled pt/family regarding: lab results, diagnosis - Departure Time of Disposition: 16:53 Departure Disposition: Home Clinical Impression: Enteritis Condition: Stable Critical Care Time: No Referrals: ALEKSANDRA GUTIERREZ [Primary Care Provider] - Additional Instructions: You had diarrhea and possible blood in your stool. Our laboratory tests did not find any blood in the stool today. I'm treating you for enteritis. Take ciprofloxacin 500 mg 2 times a day for 3 days. If you're no better in 2 days, please follow-up with your primary medical doctor. You were given Protonix 40 mg and fluids by IV in the ER today. Prescriptions: Ciprofloxacin [Cipro 500 MG] 1 tab PO BID #6 tablet
[2018-02-19] MEDS ORDERED: Sodium Chloride 0.9% 1000 ML 1,000 ML IV STA (14:51)
[2018-02-19] MEDS ORDERED: PROTONIX 40 MG IV IV ONE ×2 (14:52→15:10)
[2018-02-19] MEDS ORDERED: Sodium Chloride 0.9% 1000 ML 1,000 ML ONE (15:10)
[2018-02-19 15:35] LABS: Appearance CLOUDY (CLEAR); Glucose NEGATIVE (NEGATIVE); Leukocyte Esterase NEGATIVE (NEGATIVE); Nitrite NEGATIVE (NEGATIVE); Protein,Urine Dip NEGATIVE (Negative)
[2018-02-19 15:36] LABS: Bilirubin NEGATIVE (NEGATIVE); Blood NEGATIVE Ery/ul (0-5); Epithelial Cells MODERATE /HPF (FEW); Ketones MODERATE (NEGATIVE); Urobilinogen NORMAL mg/dL (0-1); WBC 0-2 /HPF (0-5)
[2018-02-19 15:37] LABS: Bacteria RARE /HPF (NEGATIVE)
[2018-02-19 15:39] LABS: Amphetamine,Urine NEGATIVE (NEGATIVE); Barbiturate,Urine NEGATIVE (NEGATIVE); Benzodiazepine,Urine NEGATIVE (NEGATIVE); Cocaine,Urine NEGATIVE (NEGATIVE); Methadone,Urine NEGATIVE (NEGATIVE); Opiate,Urine NEGATIVE (NEGATIVE); PCP,Urine NEGATIVE (NEGATIVE); THC,Urine NEGATIVE (NEGATIVE)
[2018-02-19 15:48] LABS: ALBUMIN 5.1 g/dL (3.5-5.0); ALKALINE PHOSPHATASE 52 U/L (38-126); ANION GAP 19.5 MEQ/L (5-15); BLOOD UREA NITROGEN 13 mg/dL (7-17); CHLORIDE 105 mmol/L (98-107); Calcium 10.2 mg/dL (8.4-10.2); Carbon Dioxide 22 mmol/L (22-30); Creatinine 1 0.67 mg/dL (0.52-1.04); Glucose 92 mg/dL (74-106); LIPASE 48 U/L (23-300); Potassium 4.2 mmol/L (3.5-5.1); SGOT/AST 29 U/L (14-36); SGPT/ALT 23 U/L (0-35); SODIUM 142 mmol/L (137-145)
[2018-02-19 15:51] LABS: BASOPHIL % 0.4 % (0.0-0.4); Basophil (Absolute #) 0.03 (0-0.4); Eosinophil % 1.8 % (0.00-5.0); Eosinophil (Absolute #) 0.15 (0-0.5); Granulocyte Absolute (ANC) 5.39 (1.4-6.9); Granulocytes % 66.4 % (36.0-66.0); Hematocrit 46.5 % (35-47); Hemoglobin 16.5 gm/dl (12.0-16.0); Lymphocyte (Absolute #) 2.02 (1.0-4.6); Lymphocytes % 24.8 % (24.0-44.0); Mean Cell Volume 84.7 fl (78-100); Mean Corpuscular Hgb Concent. 35.5 g/dl (32-36); Mean Platelet Volume 11.6 fl (6-9.5); Monocyte (Absolute #) 0.54 (0.0-1.3); Monocytes % 6.6 % (0.0-12.0); Platelet Count 259 K/mm3 (150-450); Red Blood Count 5.49 M/mm3 (4.1-5.4); White Blood Count 8.1 K/mm3 (4.0-10.5)
[2018-02-19 17:09] VITALS: BP 108/65; PULSE 70; O2SAT 97
== END 2018-02-19 17:08 | disposition home or self-care (01) ==
LOC: ED 14:02
DX: K52.9 Noninfective gastroenteritis and colitis, unspecified (principal); R10.31 Right lower quadrant pain; R10.32 Left lower quadrant pain
CPT/HCPCS: 36415; 80053; 80307; 81000; 82272; 83605; 83690; 84703; 85025; 87086; 96374; 99284

== ENCOUNTER 2019-03-06 11:28 | Emergency (ER) | payer MEDICARE ==
--- NOTE | 2019-03-06 11:49 | ERPHSYRPT ---
- History of Present Illness Time Seen by Provider: 03/06/19 11:40 Source: patient Exam Limitations: no limitations Patient Subjective Stated Complaint: pt here for a period since february 16, she states she is spotting now, pt co pain to abd, pt denies fever, Triage Nursing Assessment: pt alert,walked in, resp easy, skin w/d/p. abd soft, no edema, moves all ext well Physician History: 28-year-old white female arrives with complaint of vaginal spotting since February 16 she states she had her period on February 16 she states she's been spotting since she has some abdominal cramping occasional dysuria no vaginal discharge. Past medical history is negative Past surgical history includes cholecystectomy and ovarian cyst Timing/Duration: other (sspotting since February 16) Severity: mild Associated Symptoms: abdominal pain (occasional crampy lower abdominal pain), No nausea, No vomiting, No shortness of breath, No heartburn, No diaphoresis, No cough, No chills, No chest pain, No fever, No headaches, No loss of appetite , No malaise, No rash, No syncope, No seizure, No weakness Allergies/Adverse Reactions: amoxicillin Allergy (Verified 03/06/19 11:38) clarithromycin [From Biaxin] Allergy (Verified 03/06/19 11:38) dicyclomine Allergy (Verified 03/06/19 11:38) fluconazole [From Diflucan] Allergy (Verified 03/06/19 11:38) glycopyrrolate Allergy (Verified 03/06/19 11:38) linaclotide [From Linzess] Allergy (Verified 03/06/19 11:38) metronidazole [From Flagyl] Allergy (Verified 03/06/19 11:38) Home Medications: No Reportable Medications [No Reported Medications] 03/06/19 [History] Hx Tetanus, Diphtheria Vaccination/Date Given: Yes Hx Influenza Vaccination/Date Given: Yes Hx Pneumococcal Vaccination/Date Given: No Immunizations Up to Date: Yes - Review of Systems Constitutional: No Fever, No Chills Eyes: No Symptoms Ears, Nose, & Throat: No Symptoms Respiratory: No Cough, No Dyspnea Cardiac: No Chest Pain, No Edema, No Syncope Abdominal/Gastrointestinal: Abdominal Pain (ooccasional crampy lower abdominal pain), No Nausea, No Vomiting, No Diarrhea, No Constipation, No Hematemesis, No Hematochezia, No Melena, No Dysphagia Genitourinary Symptoms: Dysuria (ooccasional dysuria), Vaginal Bleeding ( spotting since February 16), No Frequency, No Hematuria, No Hesitancy, No Incontinence, No Urgency, No Urinary Retention, No Flank Pain, No Menorrhagia, No , No Vaginal Discharge Musculoskeletal: No Back Pain, No Neck Pain Skin: No Rash Neurological: No Dizziness, No Focal Weakness, No Sensory Changes Psychological: No Symptoms Endocrine: No Symptoms All Other Systems: Reviewed and Negative - Past Medical History Pertinent Past Medical History: No - Past Surgical History Past Surgical History: Yes Gastrointestinal: Cholecystectomy Female Surgical History: Other Other Surgical History: rt ovarian cyst removed - Social History Smoking Status: Current every day smoker How long have you smoked: yrs Exposure to second hand smoke: Yes Drug Use: none Patient Lives Alone: No - Female History Hx Last Menstrual Period: now Hx Now: No - Nursing Vital Signs Nursing Vital Signs: Initial Vital Signs Temperature 97.5 F 03/06/19 11:31 Pulse Rate 98 H 03/06/19 11:31 Respiratory Rate 16 03/06/19 11:31 Blood Pressure 129/66 03/06/19 11:31 Pain Scale Pain Intensity 5 - Physical Exam General Appearance: no apparent distress, alert Eye Exam: PERRL/EOMI, eyes nml inspection Ears, Nose, Throat Exam: normal ENT inspection, TMs normal, pharynx normal, moist mucous membranes Neck Exam: normal inspection, non-tender, supple, full range of motion Respiratory Exam: normal breath sounds, lungs clear, No respiratory distress Cardiovascular Exam: regular rate/rhythm, normal heart sounds, normal peripheral pulses, capillary refill <2 sec Gastrointestinal/Abdomen Exam: soft, normal bowel sounds, No tenderness, No mass Back Exam: normal inspection, normal range of motion, No CVA tenderness, No vertebral tenderness Extremity Exam: normal inspection, normal range of motion, pelvis stable Neurologic Exam: alert, oriented x 3, cooperative, deep tissue massage therapist II-XII nml as tested, normal mood/affect, nml cerebellar function, nml station & gait, sensation nml, No motor deficits Skin Exam: normal color, warm, dry, No rash Lymphatic Exam: No adenopathy SpO2 Interpretation: normal (99%), borderline oxygenation Ordered Tests: Active Orders 24 hr Category Date Time Status Orthostatic Vital Signs STAT Care 03/06/19 11:45 Active CBC W DIFF Stat Lab 03/06/19 12:14 Completed CMP Stat Lab 03/06/19 12:14 Completed HCG QUALITATIVE,SERUM Stat Lab 03/06/19 12:14 Completed UA W/RFX UR CULTURE Stat Lab 03/06/19 12:00 Completed Lab/Rad Data: Laboratory Result Diagrams 03/06/19 12:14 03/06/19 12:14 Laboratory Results 03/06/19 03/06/19 03/06/19 Range/Units 12:14 12:14 12:14 WBC 4.9 (4.0-10.5) K/mm3 RBC 4.73 (4.1-5.4) M/mm3 Hgb 14.4 (12.0-16.0) gm/dl Hct 43.2 (35-47) % MCV 91.3 (78-100) fl MCH 30.4 (26-32) pg MCHC 33.3 (32-36) g/dl RDW 14.6 H (11.5-14.0) % Plt Count 257 (150-450) K/mm3 MPV 11.3 H (6-9.5) fl Gran % 42.1 (36.0-66.0) % Eos # (Auto) 0.09 (0-0.5) Absolute Lymphs (auto) 2.13 (1.0-4.6) Absolute Monos (auto) 0.58 (0.0-1.3) Lymphocytes % 43.6 (24.0-44.0) % Monocytes % 11.9 (0.0-12.0) % Eosinophils % 1.8 (0.00-5.0) % Basophils % 0.6 (0.0-0.4) % Absolute Granulocytes 2.05 (1.4-6.9) Basophils # 0.03 (0-0.4) Sodium 139 (137-145) mmol/L Potassium 4.0 (3.5-5.1) mmol/L Chloride 108 H (98-107) mmol/L Carbon Dioxide 25 (22-30) mmol/L Anion Gap 10.9 (5-15) MEQ/L BUN 7 (7-17) mg/dL Creatinine 0.56 (0.52-1.04) mg/dL Estimated GFR > 60.0 ML/MIN Glucose 88 (74-106) mg/dL Calcium 9.7 (8.4-10.2) mg/dL Total Bilirubin 0.70 (0.2-1.3) mg/dL AST 31 (14-36) U/L ALT 19 (0-35) U/L Alkaline Phosphatase 45 (38-126) U/L Serum Total Protein 7.4 (6.3-8.2) g/dL Albumin 4.3 (3.5-5.0) g/dL Serum , Qual NEGATIVE (Negative) Urine Color (YELLOW) Urine Appearance (CLEAR) Urine pH (5-6) Ur Specific [place] (1.005-1.025) Urine Protein (Negative) Urine Ketones (NEGATIVE) Urine Blood (0-5) Yovany/ul Urine Nitrite (NEGATIVE) Urine Bilirubin (NEGATIVE) Urine Urobilinogen (0-1) mg/dL Ur Leukocyte Esterase (NEGATIVE) Urine WBC (Auto) (0-5) /HPF Urine RBC (Auto) (0-2) /HPF U Epithel Cells (Auto) (FEW) /HPF Urine Bacteria (Auto) (NEGATIVE) /HPF Urine Culture Reflexed (NO) Urine Glucose (NEGATIVE) mg/dL 03/06/19 Range/Units 12:00 WBC (4.0-10.5) K/mm3 RBC (4.1-5.4) M/mm3 Hgb (12.0-16.0) gm/dl Hct (35-47) % MCV (78-100) fl MCH (26-32) pg MCHC (32-36) g/dl RDW (11.5-14.0) % Plt Count (150-450) K/mm3 MPV (6-9.5) fl Gran % (36.0-66.0) % Eos # (Auto) (0-0.5) Absolute Lymphs (auto) (1.0-4.6) Absolute Monos (auto) (0.0-1.3) Lymphocytes % (24.0-44.0) % Monocytes % (0.0-12.0) % Eosinophils % (0.00-5.0) % Basophils % (0.0-0.4) % Absolute Granulocytes (1.4-6.9) Basophils # (0-0.4) Sodium (137-145) mmol/L Potassium (3.5-5.1) mmol/L Chloride (98-107) mmol/L Carbon Dioxide (22-30) mmol/L Anion Gap (5-15) MEQ/L BUN (7-17) mg/dL Creatinine (0.52-1.04) mg/dL Estimated GFR ML/MIN Glucose (74-106) mg/dL Calcium (8.4-10.2) mg/dL Total Bilirubin (0.2-1.3) mg/dL AST (14-36) U/L ALT (0-35) U/L Alkaline Phosphatase (38-126) U/L Serum Total Protein (6.3-8.2) g/dL Albumin (3.5-5.0) g/dL Serum , Qual (Negative) Urine Color YELLOW (YELLOW) Urine Appearance CLEAR (CLEAR) Urine pH 5.0 (5-6) Ur Specific [place] 1.009 (1.005-1.025) Urine Protein NEGATIVE (Negative) Urine Ketones NEGATIVE (NEGATIVE) Urine Blood SMALL (0-5) Yovany/ul Urine Nitrite NEGATIVE (NEGATIVE) Urine Bilirubin NEGATIVE (NEGATIVE) Urine Urobilinogen NEGATIVE (0-1) mg/dL Ur Leukocyte Esterase NEGATIVE (NEGATIVE) Urine WBC (Auto) NONE (0-5) /HPF Urine RBC (Auto) NONE (0-2) /HPF U Epithel Cells (Auto) NONE (FEW) /HPF Urine Bacteria (Auto) NONE (NEGATIVE) /HPF Urine Culture Reflexed NO (NO) Urine Glucose NEGATIVE (NEGATIVE) mg/dL - Progress Progress: improved Progress Note: 03/06/19 13:22 28-year-old white female arrives with complaint of vaginal spotting since February 15 2019. She states that she has been having some dysuria no vaginal discharge. Patient is inspected externally by a nurse patient was minimal vaginal spotting no discharge. Patient's orthostatic vital signs are stable. Patient's CBC white blood cell 4.9 hemoglobin 14.4 hematocrit 43.2 platelets are 257 urinalysis is unremarkable chemistry is normal patient's hCG is negative. Patient does not want pelvic examination by me. Will discharge patient to drink plenty of fluids clear fluids only 24-48 hours if abdominal pain Tylenol every 4 hours as needed for pain. She is to followup with her family . She may return for acute distress or for severe symptoms. 03/06/19 13:25 GC and Chlamydia are pending on this patient. - Departure Departure Disposition: Home Clinical Impression: prolonged menstrual period, Suprapubic abdominal pain Condition: Fair Critical Care Time: No Referrals: ALEKSANDRA GUTIERREZ [Primary Care Provider] - Additional Instructions: Return home. Followup with your family . Tylenol every 4 hours as needed for pain. Return for acute distress or for severe symptoms.
[2019-03-06 12:22] LABS: BASOPHIL % 0.6 % (0.0-0.4); Basophil (Absolute #) 0.03 (0-0.4); Eosinophil % 1.8 % (0.00-5.0); Eosinophil (Absolute #) 0.09 (0-0.5); Granulocyte Absolute (ANC) 2.05 (1.4-6.9); Granulocytes % 42.1 % (36.0-66.0); Hematocrit 43.2 % (35-47); Hemoglobin 14.4 gm/dl (12.0-16.0); Lymphocyte (Absolute #) 2.13 (1.0-4.6); Lymphocytes % 43.6 % (24.0-44.0); Mean Cell Volume 91.3 fl (78-100); Mean Corpuscular Hemoglobin 30.4 pg (26-32); Mean Corpuscular Hgb Concent. 33.3 g/dl (32-36); Mean Platelet Volume 11.3 fl (6-9.5); Monocyte (Absolute #) 0.58 (0.0-1.3); Monocytes % 11.9 % (0.0-12.0); Platelet Count 257 K/mm3 (150-450); Red Blood Count 4.73 M/mm3 (4.1-5.4); Red Cell Distribution Width 14.6 % (11.5-14.0); White Blood Count 4.9 K/mm3 (4.0-10.5)
[2019-03-06 12:34] LABS: Appearance CLEAR (CLEAR); Bilirubin NEGATIVE (NEGATIVE); Blood SMALL Ery/ul (0-5); Glucose NEGATIVE (NEGATIVE); Ketones NEGATIVE (NEGATIVE); Leukocyte Esterase NEGATIVE (NEGATIVE); Nitrite NEGATIVE (NEGATIVE); Protein,Urine Dip NEGATIVE (Negative); Specific Gravity 1.009 (1.005-1.025); Urobilinogen NEGATIVE mg/dL (0-1)
[2019-03-06 12:43] LABS: ALBUMIN 4.3 g/dL (3.5-5.0); ALKALINE PHOSPHATASE 45 U/L (38-126); ANION GAP 10.9 MEQ/L (5-15); BLOOD UREA NITROGEN 7 mg/dL (7-17); CHLORIDE 108 mmol/L (98-107); Calcium 9.7 mg/dL (8.4-10.2); Carbon Dioxide 25 mmol/L (22-30); Creatinine 1 0.56 mg/dL (0.52-1.04); Glucose 88 mg/dL (74-106); SGOT/AST 31 U/L (14-36); SGPT/ALT 19 U/L (0-35); SODIUM 139 mmol/L (137-145); Total Protein 7.4 g/dL (6.3-8.2)
[2019-03-06 13:16] VITALS: BP 109/67; PULSE 60; O2SAT 98
[2019-03-06 14:04] LABS: CHLAMYDIA URINE NEGATIVE (NEGATIVE); GC URINE NEGATIVE (NEGATIVE)
== END 2019-03-06 13:34 | disposition home or self-care (01) ==
LOC: ED 11:28
DX: N92.0 Excessive and frequent menstruation with regular cycle (principal); R10.30 Lower abdominal pain, unspecified; N83.209 Unspecified ovarian cyst, unspecified side
CPT/HCPCS: 36415; 80053; 81001; 81025; 85025; 87491; 87591; 99283

== ENCOUNTER 2020-06-01 14:34 | Emergency (ER) | payer MEDICARE ==
--- NOTE | 2020-06-01 15:12 | ERPHSYRPT ---
- History of Present Illness Time Seen by Provider: 06/01/20 15:00 Historian: patient, family Exam Limitations: no limitations Patient Subjective Stated Complaint: Pain in the right lateral side below her arm pit that radiates under her right breast Triage Nursing Assessment: Pt brought to the ER by her dad, lisset wnl, denies pain with palpatation to the side or under the breast, pulses normal, bowel sounds heard in all 4 quadrants, skin n/w/d, denies any injury Physician History: This is a 29-year-old white female who presents with right flank, right lateral lower rib and right inframammary pain. Patient does not have any breast pain or breast changes. Patient states that she has no associated nausea vomiting or diarrhea. She has no new fevers. She chronically has a mild cough and that is not changed. She has no anterior chest pain. She denies trauma to the any of these areas. The pain has been present for approximately 3 days. Patient states that she does not want any pain medicine of any kind at this time. Patient has no urinary symptoms. Timing/Duration: day(s) (3) Activities at Onset: none Quality: sharpness Abdominal Pain Onset Location: flank (Right) Pain Radiation: other (Right lateral and lower ribs) Severity of Pain-Max: mild Severity of Pain-Current: mild Modifying Factors: Improves With: movement, position Associated Symptoms: back (right flank) Previous symptoms: no prior history Allergies/Adverse Reactions: amoxicillin Allergy (Verified 06/01/20 14:50) clarithromycin [From Biaxin] Allergy (Verified 06/01/20 14:50) dicyclomine Allergy (Verified 06/01/20 14:50) fluconazole [From Diflucan] Allergy (Verified 06/01/20 14:50) glycopyrrolate Allergy (Verified 06/01/20 14:50) linaclotide [From Linzess] Allergy (Verified 06/01/20 14:50) metronidazole [From Flagyl] Allergy (Verified 06/01/20 14:50) Home Medications: No Reportable Medications [No Reported Medications] 03/06/19 [History] Hx Tetanus, Diphtheria Vaccination/Date Given: Yes Hx Influenza Vaccination/Date Given: Yes Hx Pneumococcal Vaccination/Date Given: No Travel Risk - International Travel Have you traveled outside of the country in past 3 weeks: No - Coronavirus Screening Are you exhibiting any of the following symptoms?: No Close contact with a COVID-19 positive Pt in past 14-21 Days: No - Review of Systems Constitutional: No Symptoms Eyes: No Symptoms Ears, Nose, & Throat: No Symptoms Respiratory: No Symptoms Cardiac: No Symptoms Abdominal/Gastrointestinal: No Symptoms Genitourinary Symptoms: Flank Pain (right) Musculoskeletal: No Symptoms Skin: No Symptoms Neurological: No Symptoms Psychological: No Symptoms Endocrine: No Symptoms Hematologic/Lymphatic: No Symptoms Immunological/Allergic: No Symptoms All Other Systems: Reviewed and Negative - Past Medical History Pertinent Past Medical History: No Neurological History: No Pertinent History ENT History: No Pertinent History Cardiac History: No Pertinent History Respiratory History: No Pertinent History Endocrine Medical History: No Pertinent History Musculoskeletal History: No Pertinent History GI Medical History: No Pertinent History History: No Pertinent History Psycho-Social History: No Pertinent History Female Reproductive Disorders: No Pertinent History - Past Surgical History Past Surgical History: Yes Gastrointestinal: Cholecystectomy Female Surgical History: Other Other Surgical History: rt ovarian cyst removed - Social History Smoking Status: Current every day smoker How long have you smoked: yrs Exposure to second hand smoke: Yes Drug Use: none Patient Lives Alone: No - Female History Hx Now: No ( control) - Nursing Vital Signs Nursing Vital Signs: Initial Vital Signs Temperature 98.1 F 06/01/20 14:38 Pulse Rate 81 06/01/20 14:38 Blood Pressure 127/72 06/01/20 14:38 O2 Sat by Pulse Oximetry 100 06/01/20 14:38 Pain Scale Pain Intensity 7 - Physical Exam General Appearance: no apparent distress, alert, anxiety Eye Exam: PERRL/EOMI, eyes nml inspection Ears, Nose, Throat Exam: normal ENT inspection, moist mucous membranes Neck Exam: normal inspection, non-tender, supple, full range of motion Respiratory Exam: normal breath sounds, lungs clear, airway intact, No chest tenderness, No respiratory distress Cardiovascular Exam: regular rate/rhythm, normal heart sounds, normal peripheral pulses Gastrointestinal/Abdomen Exam: soft, normal bowel sounds, No tenderness, No gua rding Pelvic Exam: not done Rectal Exam: not done Back Exam: CVA tenderness, vertebral tenderness, No normal inspection (Right), No normal range of motion Extremity Exam: normal inspection, normal range of motion, pelvis stable Neurologic Exam: alert, oriented x 3, cooperative, assistant 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 II-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 nml as tested, normal mood/affect, nml cerebellar function, nml station & gait, sensation nml Skin Exam: normal color, warm, dry Lymphatic Exam: No adenopathy SpO2 Interpretation: normal SpO2: 100 O2 Delivery: Room Air Ordered Tests: Active Orders 24 hr Category Date Time Status IV Insertion STAT Care 06/01/20 15:12 Active ABDOMEN AND PELVIS W/0 CONTRAS [CT] Stat Exams 06/01/20 15:13 Completed CHEST 1 VIEW (PORTABLE) Stat Exams 06/01/20 15:12 Completed AMYLASE Stat Lab 06/01/20 14:40 Completed CBC W DIFF Stat Lab 06/01/20 14:40 Completed CMP Stat Lab 06/01/20 14:40 Completed CULTURE,URINE Stat Lab 06/01/20 14:40 Received HCG,QUALITATIVE URINE Stat Lab 06/01/20 14:40 Completed LIPASE Stat Lab 06/01/20 14:40 Completed Lactic Acid Stat Lab 06/01/20 15:43 Completed UA W/RFX UR CULTURE Stat Lab 06/01/20 14:40 Completed Lab/Rad Data: Laboratory Result Diagrams 06/01/20 14:40 06/01/20 14:40 Laboratory Results 06/01/20 06/01/20 06/01/20 Range/Units 15:43 14:40 14:40 WBC (4.0-10.5) K/mm3 RBC (4.1-5.4) M/mm3 Hgb (12.0-16.0) gm/dl Hct (35-47) % MCV (78-100) fl MCH (26-32) pg MCHC (32-36) g/dl RDW (11.5-14.0) % Plt Count (150-450) K/mm3 MPV (7.5-11.0) fl Gran % (36.0-66.0) % Eos # (Auto) (0-0.5) Absolute Lymphs (auto) (1.0-4.6) Absolute Monos (auto) (0.0-1.3) Lymphocytes % (24.0-44.0) % Monocytes % (0.0-12.0) % Eosinophils % (0.00-5.0) % Basophils % (0.0-0.4) % Absolute Granulocytes (1.4-6.9) Basophils # (0-0.4) Sodium (137-145) mmol/L Potassium (3.5-5.1) mmol/L Chloride (98-107) mmol/L Carbon Dioxide (22-30) mmol/L Anion Gap (5-15) MEQ/L BUN (7-17) mg/dL Creatinine (0.52-1.04) mg/dL Estimated GFR ML/MIN Glucose (74-106) mg/dL Lactic Acid 1.2 (0.4-2.0) Calcium (8.4-10.2) mg/dL Total Bilirubin (0.2-1.3) mg/dL AST (14-36) U/L ALT (0-35) U/L Alkaline Phosphatase (38-126) U/L Serum Total Protein (6.3-8.2) g/dL Albumin (3.5-5.0) g/dL Amylase (30-110) U/L Lipase (23-300) U/L Urine Color STRAW (YELLOW) Urine Appearance CLEAR (CLEAR) Urine pH 6.0 (5-6) Ur Specific [place] 1.004 (1.005-1.025) Urine Protein NEGATIVE (Negative) Urine Ketones NEGATIVE (NEGATIVE) Urine Blood NEGATIVE (0-5) Yovany/ul Urine Nitrite NEGATIVE (NEGATIVE) Urine Bilirubin NEGATIVE (NEGATIVE) Urine Urobilinogen NEGATIVE (0-1) mg/dL Ur Leukocyte Esterase NEGATIVE (NEGATIVE) Urine WBC (Auto) 0-2 (0-5) /HPF Urine RBC (Auto) NONE (0-2) /HPF U Epithel Cells (Auto) RARE (FEW) /HPF Urine Bacteria (Auto) MANY (NEGATIVE) /HPF Urine Culture Reflexed YES (NO) Urine Glucose NEGATIVE (NEGATIVE) mg/dL Urine HCG, Qual NEGATIVE (Negative) 06/01/20 06/01/20 Range/Units 14:40 14:40 WBC 5.1 (4.0-10.5) K/mm3 RBC 5.16 (4.1-5.4) M/mm3 Hgb 14.8 (12.0-16.0) gm/dl Hct 45.9 (35-47) % MCV 89.0 (78-100) fl MCH 28.7 (26-32) pg MCHC 32.2 (32-36) g/dl RDW 13.8 (11.5-14.0) % Plt Count 279 (150-450) K/mm3 MPV 11.6 H (7.5-11.0) fl Gran % 31.5 L (36.0-66.0) % Eos # (Auto) 0.21 (0-0.5) Absolute Lymphs (auto) 2.64 (1.0-4.6) Absolute Monos (auto) 0.58 (0.0-1.3) Lymphocytes % 52.2 H (24.0-44.0) % Monocytes % 11.5 (0.0-12.0) % Eosinophils % 4.2 (0.00-5.0) % Basophils % 0.6 (0.0-0.4) % Absolute Granulocytes 1.60 (1.4-6.9) Basophils # 0.03 (0-0.4) Sodium 138 (137-145) mmol/L Potassium 4.4 (3.5-5.1) mmol/L Chloride 107 (98-107) mmol/L Carbon Dioxide 26 (22-30) mmol/L Anion Gap 9.5 (5-15) MEQ/L BUN 15 (7-17) mg/dL Creatinine 0.64 (0.52-1.04) mg/dL Estimated GFR > 60.0 ML/MIN Glucose 93 (74-106) mg/dL Lactic Acid (0.4-2.0) Calcium 9.7 (8.4-10.2) mg/dL Total Bilirubin 0.20 (0.2-1.3) mg/dL AST 31 (14-36) U/L ALT 12 (0-35) U/L Alkaline Phosphatase 46 (38-126) U/L Serum Total Protein 7.7 (6.3-8.2) g/dL Albumin 4.5 (3.5-5.0) g/dL Amylase 72 (30-110) U/L Lipase 35 (23-300) U/L Urine Color (YELLOW) Urine Appearance (CLEAR) Urine pH (5-6) Ur Specific [place] (1.005-1.025) Urine Protein (Negative) Urine Ketones (NEGATIVE) Urine Blood (0-5) Yovany/ul Urine Nitrite (NEGATIVE) Urine Bilirubin (NEGATIVE) Urine Urobilinogen (0-1) mg/dL Ur Leukocyte Esterase (NEGATIVE) Urine WBC (Auto) (0-5) /HPF Urine RBC (Auto) (0-2) /HPF U Epithel Cells (Auto) (FEW) /HPF Urine Bacteria (Auto) (NEGATIVE) /HPF Urine Culture Reflexed (NO) Urine Glucose (NEGATIVE) mg/dL Urine HCG, Qual (Negative) - Progress Progress: pain not gone completely, re-examined Progress Note: 06/01/20 16:48 CAT scan of the abdomen and pelvis reveals fecal stasis that is scattered throughout the colon. There is a tiny amount of physiologic pelvic fluid which is presumed to be from a ovarian cyst. There are no other intra-abdominal abnormalities. 06/01/20 16:50 X-ray of the chest reveals no acute cardiopulmonary process Counseled pt/family regarding: lab results, diagnosis, need for follow-up, rad results - Departure Departure Disposition: Home Clinical Impression: Rib pain on right side, Right flank pain Condition: Stable Critical Care Time: No Referrals: ALEKSANDRA GUTIERREZ [Primary Care Provider] - Additional Instructions: Drink plenty of fluids. Follow-up with your primary care physician for further management.
[2020-06-01 15:34] LABS: BASOPHIL % 0.6 % (0.0-0.4); Basophil (Absolute #) 0.03 (0-0.4); Eosinophil % 4.2 % (0.00-5.0); Eosinophil (Absolute #) 0.21 (0-0.5); Hematocrit 45.9 % (35-47); Hemoglobin 14.8 gm/dl (12.0-16.0); Lymphocyte (Absolute #) 2.64 (1.0-4.6); Lymphocytes % 52.2 % (24.0-44.0); Mean Corpuscular Hemoglobin 28.7 pg (26-32); Mean Corpuscular Hgb Concent. 32.2 g/dl (32-36); Mean Platelet Volume 11.6 fl (7.5-11.0); Monocyte (Absolute #) 0.58 (0.0-1.3); Monocytes % 11.5 % (0.0-12.0); Neutrophil % 31.5 % (36.0-66.0); Platelet Count 279 K/mm3 (150-450); Red Blood Count 5.16 M/mm3 (4.1-5.4); Red Cell Distribution Width 13.8 % (11.5-14.0); White Blood Count 5.1 K/mm3 (4.0-10.5)
[2020-06-01 15:47] LABS: Appearance CLEAR (CLEAR); Bacteria MANY /HPF (NEGATIVE); Bilirubin NEGATIVE (NEGATIVE); Blood NEGATIVE Ery/ul (0-5); Epithelial Cells RARE /HPF (FEW); Glucose NEGATIVE (NEGATIVE); Ketones NEGATIVE (NEGATIVE); Leukocyte Esterase NEGATIVE (NEGATIVE); Nitrite NEGATIVE (NEGATIVE); Protein,Urine Dip NEGATIVE (Negative); Specific Gravity 1.004 (1.005-1.025); Urobilinogen NEGATIVE mg/dL (0-1); WBC 0-2 /HPF (0-5)
[2020-06-01 15:50] LABS: ALBUMIN 4.5 g/dL (3.5-5.0); ALKALINE PHOSPHATASE 46 U/L (38-126); AMYLASE 72 U/L (30-110); ANION GAP 9.5 MEQ/L (5-15); BLOOD UREA NITROGEN 15 mg/dL (7-17); CHLORIDE 107 mmol/L (98-107); Calcium 9.7 mg/dL (8.4-10.2); Carbon Dioxide 26 mmol/L (22-30); Creatinine 1 0.64 mg/dL (0.52-1.04); EST GLOMERULAR FILTRATION RATE > 60.0 ML/MIN; Glucose 93 mg/dL (74-106); LIPASE 35 U/L (23-300); Potassium 4.4 mmol/L (3.5-5.1); SGOT/AST 31 U/L (14-36); SGPT/ALT 12 U/L (0-35); SODIUM 138 mmol/L (137-145); Total Protein 7.7 g/dL (6.3-8.2)
--- NOTE | 2020-06-01 16:37 | XRAY ---
Indication: Right rib/flank pain 3 days. Comparison: None PA/lateral chest demonstrates normal heart and lungs with incidental tiny right base calcified granuloma. Bony thorax intact with minimal double curvature scoliosis.
--- NOTE | 2020-06-01 16:41 | XRAY ---
Indication: Right flank pain 3 days. Multiple contiguous axial images obtained through the abdomen and pelvis without contrast as ordered. Comparison: September 01, 2017. Lung bases demonstrates stable right posterior costophrenic granuloma. No infiltrate or effusion. Heart is not enlarged. Noncontrasted stomach and bowel loops appear nonobstructed. Normal appendix. There is again mild diffuse scattered colonic fecal debris throughout including rectum. Again tiny cul-de-sac fluid presumed physiologic from rupture/leaking cyst. No free air. Stable cholecystectomy. Remaining liver, pancreas, spleen, adrenal glands, kidneys, ureters, bladder, uterus, and aorta appear unremarkable for noncontrast exam. Osseous structures intact. Impression: 1. Tiny cul-de-sac fluid presumed physiologic. 2. Again incidental mild diffuse fecal stasis. 3. Remaining CT abdomen/pelvis without contrast exam is negative.
[2020-06-01 16:59] VITALS: BP 116/65; PULSE 72; O2SAT 99
== END 2020-06-01 17:13 | disposition home or self-care (01) ==
LOC: ED 14:34
DX: R07.81 Pleurodynia (principal); R10.9 Unspecified abdominal pain
CPT/HCPCS: 36000; 36415; 71045; 74176; 80053; 81001; 82150; 83605; 83690; 84703; 85025; 87086; 99284

== ENCOUNTER 2021-02-15 21:41 | Emergency (ER) | payer MEDICARE ==
--- NOTE | 2021-02-15 21:46 | ERPHSYRPT ---
- History of Present Illness Time Seen by Provider: 02/15/21 21:46 Source: patient Exam Limitations: no limitations Physician History: This is a 30-year-old white female who is currently on her menstrual period and presents with mild suprapubic pressure and dysuria at the end of her urinating. Symptoms began last night and they are persistent. Patient had no nausea vomiting or diarrhea. She denies flank pain. She has no chest pain and no shortness of breath. Patient states she has no abnormal vaginal discharge. Timing/Duration: yesterday Activites at Onset: none Quality: burning, sharpness Onset Location: suprapubic, other (Urethra) Severity of Pain-Max: moderate Severity of Pain-Current: mild (To moderate) Prior abdominal problems: none Sexual intercourse history: non-contributory Modifying Factors: Improves With: urinating. Worsens With: vomiting Associated Symptoms: urinary frequency, No fever, No chills, No nausea, No vomiting, No polyuria, No vaginal discharge Allergies/Adverse Reactions: amoxicillin Allergy (Verified 02/15/21 21:49) clarithromycin [From Biaxin] Allergy (Verified 02/15/21 21:49) dicyclomine Allergy (Verified 02/15/21 21:49) fluconazole [From Diflucan] Allergy (Verified 02/15/21 21:49) glycopyrrolate Allergy (Verified 02/15/21 21:49) linaclotide [From Linzess] Allergy (Verified 02/15/21 21:49) metronidazole [From Flagyl] Allergy (Verified 02/15/21 21:49) Hx Tetanus, Diphtheria Vaccination/Date Given: Yes Hx Influenza Vaccination/Date Given: Yes Hx Pneumococcal Vaccination/Date Given: No Travel Risk - International Travel Have you traveled outside of the country in past 3 weeks: No - Coronavirus Screening Are you exhibiting any of the following symptoms?: No Close contact with a COVID-19 positive Pt in past 14-21 Days: No - Review of Systems Constitutional: No Symptoms Eyes: No Symptoms Ears, Nose, & Throat: No Symptoms Respiratory: No Symptoms Cardiac: No Symptoms Abdominal/Gastrointestinal: Abdominal Pain (Mild suprapubic pressure) Genitourinary Symptoms: Dysuria, Frequency, Hematuria (Patient is on her menstrual period), No Flank Pain Musculoskeletal: No Symptoms Skin: No Symptoms Neurological: No Symptoms Psychological: No Symptoms Endocrine: No Symptoms Hematologic/Lymphatic: No Symptoms Immunological/Allergic: No Symptoms All Other Systems: Reviewed and Negative - Past Medical History Pertinent Past Medical History: No Neurological History: No Pertinent History ENT History: No Pertinent History Cardiac History: No Pertinent History Respiratory History: No Pertinent History Endocrine Medical History: No Pertinent History Musculoskeletal History: No Pertinent History GI Medical History: No Pertinent History History: No Pertinent History Psycho-Social History: No Pertinent History Female Reproductive Disorders: No Pertinent History - Past Surgical History Past Surgical History: Yes Gastrointestinal: Cholecystectomy Female Surgical History: Other Other Surgical History: rt ovarian cyst removed - Social History Smoking Status: Current every day smoker How long have you smoked: yrs Exposure to second hand smoke: Yes Drug Use: none Patient Lives Alone: No - Nursing Vital Signs Nursing Vital Signs: Initial Vital Signs Temperature 98.2 F 02/15/21 21:49 Pulse Rate 88 02/15/21 21:49 Respiratory Rate 16 02/15/21 21:49 Blood Pressure 128/65 02/15/21 21:49 O2 Sat by Pulse Oximetry 100 02/15/21 21:49 Pain Scale Pain Intensity 7 - Physical Exam General Appearance: no apparent distress, alert, anxiety Eye Exam: PERRL/EOMI, eyes nml inspection Ears, Nose, Throat Exam: normal ENT inspection, moist mucous membranes Neck Exam: normal inspection, non-tender, supple, full range of motion Respiratory Exam: normal breath sounds, lungs clear, No chest tenderness, No respiratory distress Cardiovascular Exam: regular rate/rhythm, normal heart sounds, normal peripheral pulses Gastrointestinal/Abdomen Exam: soft, normal bowel sounds, No tenderness, No guarding Pelvic Exam: not done Rectal Exam: not done Back Exam: normal inspection, normal range of motion, No CVA tenderness, No vertebral tenderness Extremity Exam: normal inspection, normal range of motion, pelvis stable Neurologic Exam: alert, oriented x 3, cooperative, 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 nml as tested, normal mood/affect, nml cerebellar function, nml station & gait, sensation nml Skin Exam: normal color, warm, dry Lymphatic Exam: No adenopathy SpO2 Interpretation: normal O2 Delivery: Room Air - Course Nursing assessment & vital signs reviewed: Yes Ordered Tests: Active Orders 24 hr Category Date Time Status IV Insertion STAT Care 02/15/21 22:13 Active CULTURE,URINE Stat Lab 02/15/21 22:02 Received HCG,QUALITATIVE URINE Stat Lab 02/15/21 22:02 Completed UA W/RFX UR CULTURE Stat Lab 02/15/21 22:02 Completed Lab/Rad Data: Laboratory Results 02/15/21 02/15/21 Range/Units 22:02 22:02 Urine Color YELLOW (YELLOW) Urine Appearance CLOUDY (CLEAR) Urine pH 6.0 (5-6) Ur Specific [place] 1.009 (1.005-1.025) Urine Protein 100 (Negative) Urine Ketones NEGATIVE (NEGATIVE) Urine Blood LARGE (0-5) Yovany/ul Urine Nitrite NEGATIVE (NEGATIVE) Urine Bilirubin NEGATIVE (NEGATIVE) Urine Urobilinogen NEGATIVE (0-1) mg/dL Ur Leukocyte Esterase LARGE (NEGATIVE) Urine WBC (Auto) >100 (0-5) /HPF Urine RBC (Auto) >101 (0-2) /HPF U Epithel Cells (Auto) RARE (FEW) /HPF Urine Bacteria (Auto) FEW (NEGATIVE) /HPF Urine Mucus (Auto) SLIGHT (NEGATIVE) /HPF Urine Culture Reflexed YES (NO) Urine Glucose NEGATIVE (NEGATIVE) mg/dL Urine HCG, Qual NEGATIVE (Negative) - Departure Departure Disposition: Home Clinical Impression: UTI (urinary tract infection) Condition: Stable Critical Care Time: No Referrals: ALEKSANDRA GUTIERREZ [Primary Care Provider] - Additional Instructions: Drink plenty of fluids. If not allergic, use Tylenol and ibuprofen for pain control. Take your medication as prescribed. Follow-up with your primary care physician for further management. Prescriptions: Ciprofloxacin [Cipro 500 MG] 500 mg PO BID #14 tablet Phenazopyridine HCl 200 mg [Pyridium 200 mg] 200 mg PO TID #6 tablet
[2021-02-15 22:27] LABS: Appearance CLOUDY (CLEAR); Bacteria FEW /HPF (NEGATIVE); Bilirubin NEGATIVE (NEGATIVE); Blood LARGE Ery/ul (0-5); Epithelial Cells RARE /HPF (FEW); Glucose NEGATIVE (NEGATIVE); Ketones NEGATIVE (NEGATIVE); Leukocyte Esterase LARGE (NEGATIVE); Mucus SLIGHT /HPF (NEGATIVE); Nitrite NEGATIVE (NEGATIVE); Protein,Urine Dip 100 (Negative); Specific Gravity 1.009 (1.005-1.025); Urobilinogen NEGATIVE mg/dL (0-1); WBC >100 /HPF (0-5)
[2021-02-15 22:28] LABS: RBC >101 /HPF (0-2)
[2021-02-15] MEDS ORDERED: Levofloxacin 500MG/100ML D5W 500 MG/100 ML BAG IV STA (22:40)
[2021-02-15] MEDS ORDERED: Levofloxacin 500MG/100ML D5W 500 MG/100 ML BAG IV ONE (22:43)
[2021-02-15] MEDS ORDERED: PYRIDIUM 200 MG ONE (22:43)
[2021-02-15 23:35] VITALS: BP 104/53; PULSE 54; O2SAT 98
[2021-02-16] MEDS ORDERED: PYRIDIUM 200 MG PO ONE (22:40)
== END 2021-02-15 23:50 | disposition home or self-care (01) ==
LOC: ED 21:41
DX: N39.0 Urinary tract infection, site not specified (principal)
CPT/HCPCS: 36000; 81001; 84703; 87077; 87086; 87186; 96360; 99284; J1956; A9270-GY

== ENCOUNTER 2021-03-31 19:56 | Emergency (ER) | payer MEDICARE ==
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
[2021-03-31 20:01] VITALS: BP 121/75; PULSE 101; O2SAT 99
[2021-03-31] MEDS ORDERED: MOTRIN 600 MG ONE (21:23)
[2021-03-31] MEDS: MOTRIN 600 MG PO ONE (21:25)
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
== END 2021-03-31 21:39 | disposition home or self-care (01) ==
LOC: ED 19:56
DX: S70.212A Abrasion, left hip, initial encounter (principal); S70.211A Abrasion, right hip, initial encounter; S00.83XA Contusion of other part of head, initial encounter; M54.5 Low back pain; M62.830 Muscle spasm of back; V89.2XXA Person injured in unspecified motor-vehicle accident, traffic, initial encounter; Y93.89 Activity, other specified; Y92.89 Other specified places as the place of occurrence of the external cause; Y99.8 Other external cause status
CPT/HCPCS: 72100; 73521; 99285; A9270-GY

== ENCOUNTER 2021-04-05 16:25 | Emergency (ER) | payer MEDICARE ==
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
[2021-04-05] MEDS ORDERED: TORAdol 30 mg Injection IV ONE (20:02)
[2021-04-05] MEDS ORDERED: TORAdol 30 mg Injection ONE (20:29)
[2021-04-05 20:54] VITALS: BP 116/70; PULSE 65
[2021-04-05 22:23] VITALS: O2SAT 99
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
== END 2021-04-05 20:54 | disposition home or self-care (01) ==
LOC: ED 16:25
DX: R51.9 Headache, unspecified (principal)
CPT/HCPCS: 70450; 72125; 74177; 84703; 96374; 99284; J1885

== ENCOUNTER 2021-11-08 19:52 | Emergency (ER) | payer MEDICARE ==
[2021-11-08 20:23] VITALS: BP 119/54
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
[2021-11-08 21:05] VITALS: PULSE 62; O2SAT 99
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
== END 2021-11-08 21:12 | disposition home or self-care (01) ==
LOC: ED 19:52
DX: M54.12 Radiculopathy, cervical region (principal); M25.511 Pain in right shoulder; M79.641 Pain in right hand; M25.521 Pain in right elbow; M54.2 Cervicalgia; R51.9 Headache, unspecified; Z72.0 Tobacco use
CPT/HCPCS: 72040; 73030; 73080; 73130; 99283

== ENCOUNTER 2024-11-17 19:20 | Emergency (ER) | payer MEDICARE ==
[2024-11-17 20:05] VITALS: TEMP 97.3; O2SAT 100
--- NOTE | 2024-11-17 20:16 | ERPHSYRPT ---
- History of Present Illness Source: patient Exam Limitations: no limitations Physician History: Patient has been having some hives over the last few months. She has been diagnosed with the new onsets of food allergies. She just finished a course of prednisone because she had hives last week. They started again 2 days ago. That was about the time she is finishing up her prednisone. She is taking Benadryl for this.I believe that she has had some allergy testing.She is currently taking Singulair and seeing an podiatrist orthopedic.She does not have any respiratory difficulties has no angioedema or any signs or symptoms of anaphylaxis. Allergies/Adverse Reactions: amoxicillin Allergy (Verified 11/17/24 20:16) clarithromycin [From Biaxin] Allergy (Verified 11/17/24 20:16) dicyclomine Allergy (Verified 11/17/24 20:16) fluconazole [From Diflucan] Allergy (Verified 11/17/24 20:16) glycopyrrolate Allergy (Verified 11/17/24 20:16) linaclotide [From Linzess] Allergy (Verified 11/17/24 20:16) metronidazole [From Flagyl] Allergy (Verified 11/17/24 20:16) montelukast Adverse Reaction (Severe, Verified 11/17/24 20:16) Home Medications: No Reportable Medications [No Reported Medications] 11/17/24 [History] Hx Tetanus, Diphtheria Vaccination/Date Given: Yes Hx Influenza Vaccination/Date Given: No Hx Pneumococcal Vaccination/Date Given: No - Review of Systems Constitutional: No Symptoms Eyes: No Symptoms Ears, Nose, & Throat: No Symptoms Respiratory: No Symptoms Cardiac: No Symptoms Skin: Other (Hives) Neurological: No Symptoms Psychological: No Symptoms - Past Medical History Pertinent Past Medical History: No Neurological History: No Pertinent History ENT History: No Pertinent History Cardiac History: No Pertinent History Respiratory History: No Pertinent History Endocrine Medical History: No Pertinent History Musculoskeletal History: No Pertinent History GI Medical History: No Pertinent History History: No Pertinent History Psycho-Social History: No Pertinent History Female Reproductive Disorders: No Pertinent History Other Medical History: Ovarian Cyst Removal (2014), Cholecystectomy (2016), rt ovary and tube removal - Past Surgical History Past Surgical History: Yes Gastrointestinal: Cholecystectomy Female Surgical History: Other Other Surgical History: rt ovarian cyst removed, rt ovary and tube removal Significant Family History: no pertinent family hx - Social History Smoking Status: Current every day smoker How long have you smoked: 16 yrs Exposure to second hand smoke: No Drug Use: none Patient Lives Alone: No - Nursing Vital Signs Nursing Vital Signs: Initial Vital Signs Temperature 97.3 F 11/17/24 20:03 Pulse Rate 92 H 11/17/24 20:03 Respiratory Rate 18 11/17/24 20:03 Blood Pressure 118/79 11/17/24 20:03 O2 Sat by Pulse Oximetry 100 11/17/24 20:03 Pain Scale Pain Intensity 6 - Physical Exam General Appearance: no apparent distress Eye Exam: PERRL/EOMI, eyes nml inspection Respiratory Exam: normal breath sounds, lungs clear, No chest tenderness, No respiratory distress Skin Exam: other (Areas of scattered hives on her abdomen and upper extremities mainly. Overall it is not too extensive. She says its gotten a little bit worse today however.) SpO2: 100 - Course Nursing assessment & vital signs reviewed: Yes Ordered Tests: Medication Summary Discontinued Medications Generic Name Dose Route Start Last Admin Trade Name Marcos PRN Reason Stop Dose Admin Methylprednisolone Sodium 0 mg 11/17/24 20:16 11/17/24 20:22 Succinate 80 mg/ Sterile Water IV 11/17/24 20:17 125 mg 2 ml STAT ONE Administration Diphenhydramine HCl 50 mg 11/17/24 20:16 11/17/24 20:23 Diphenhydramine Hcl 50 Mg/Ml Vial IV 11/17/24 20:17 50 mg STAT ONE Administration Diphenhydramine HCl Confirm 11/17/24 20:20 Diphenhydramine Hcl 50 Mg/Ml Vial Administered 11/17/24 20:21 Dose 50 mg .ROUTE .STK-MED ONE Famotidine 40 mg 11/17/24 20:16 11/17/24 20:23 Famotidine 20 Mg/1 Vial IV 11/17/24 20:17 40 mg STAT ONE Administration Famotidine Confirm 11/17/24 20:20 Famotidine 20 Mg/1 Vial Administered 11/17/24 20:21 Dose 20 mg IV .STK-MED ONE Famotidine Confirm 11/17/24 20:26 Famotidine 20 Mg/1 Vial Administered 11/17/24 20:27 Dose 20 mg IV .STK-MED ONE Methylprednisolone Sodium Succinate Confirm 11/17/24 20:20 Methylprednis Sod Succ 125 Mg/2 Ml Vial Administered 11/17/24 20:21 Dose 125 mg .ROUTE .STK-MED ONE Sterile Water Confirm 11/17/24 20:20 Water For Injection,Sterile 10 Ml Vial Administered 11/17/24 20:21 Dose 10 ml IJ .STK-MED ONE - Progress Progress: improved Progress Note: Patient was stable throughout stay. I gave her some IV Benadryl, Reglan and Solu-Medrol.She had minimal relief. I do not know what else to do for her at this point. The areas of rash are small and somewhat isolated. Am going to have her go home and put ice packs on the areas and call her podiatrist orthopedic in the morning.She is stable and has no anaphylaxis or angioedema type symptoms 11/17/24 21:02 11/17/24 21:20 Medical Desision Making - Risk of complications Minimal Risk: Minimal risk of morbidity - Departure Departure Disposition: Home Clinical Impression: Hives Condition: Stable Critical Care Time: No Referrals: ALEKSANDRA GUTIERREZ [Primary Care Provider] - Follow up/PCP as directed Instructions: Hives
[2024-11-17] MEDS ORDERED: Pepcid 20 MG VIAL IV ONE ×2 (20:20→20:26)
[2024-11-17] MEDS ORDERED: BENADRYL 50 MG/ML ONE (20:20)
[2024-11-17] MEDS ORDERED: solu-MEDROL ONE (20:20)
[2024-11-17] MEDS ORDERED: Sterile H2O 10 ml IJ ONE (20:20)
[2024-11-17] MEDS: solu-MEDROL 80 MG, Sterile H2O 10 ml 2 ML IV ONE (20:22)
[2024-11-17] MEDS: BENADRYL 50 MG/ML IV ONE (20:22)
[2024-11-17] MEDS: Pepcid 20 MG VIAL IV ONE (20:23)
[2024-11-17 21:13] VITALS: BP 101/56; PULSE 75; RESP 28
== END 2024-11-17 21:44 | disposition home or self-care (01) ==
LOC: ED 19:20
DX: L50.9 Urticaria, unspecified (principal); Z72.0 Tobacco use
CPT/HCPCS: 96374; 96375; 99284; J1200; J2919

== ENCOUNTER 2025-06-26 18:57 | Emergency (ER) | payer MEDICARE ==
[2025-06-26 19:18] VITALS: TEMP 98.5; O2SAT 100
--- NOTE | 2025-06-26 19:30 | ERPHSYRPT ---
- History of Present Illness Patient Subjective Stated Complaint: c/o left ankle injury Triage Nursing Assessment: Patient brought to ED by boyfriend with c/o left ankle injury. patient states that she was standing and her dog ran between her legs and she fell and heard a snap. states the pain is from her knee down. trent nt rates pain 9/10 at this time. states it is tender to touch, no deformities or swelling present at this time. brought in by wheelchair, skin w/n/d, pulses normal. patient doesn't appear to be in any distress at this time. Physician History: Left ankle injury, onset of symptoms this morning around 9:30 AM, patient apparently was tripped by the dog injuring her left ankle, she also complained having pain about her left foot, she was ambulating with marked amount of tenderness, No other injuries Method of Injury: fell Occurred: this morning Quality: constant Severity of Pain-Max: moderate Severity of Pain-Current: moderate Lower Extremities Pain: foot: left (generalized pain), ankle: left (tenderness to ATFL) Modifying Factors: Improves With: nothing Associated Symptoms: none Allergies/Adverse Reactions: amoxicillin Allergy (Verified 06/26/25 19:09) clarithromycin [From Biaxin] Allergy (Verified 06/26/25 19:09) dicyclomine Allergy (Verified 06/26/25 19:09) fluconazole [From Diflucan] Allergy (Verified 06/26/25 19:09) glycopyrrolate Allergy (Verified 06/26/25 19:09) linaclotide [From Linzess] Allergy (Verified 06/26/25 19:09) metronidazole [From Flagyl] Allergy (Verified 06/26/25 19:09) montelukast Adverse Reaction (Severe, Verified 06/26/25 19:09) Hx Tetanus, Diphtheria Vaccination/Date Given: Yes Hx Influenza Vaccination/Date Given: No Hx Pneumococcal Vaccination/Date Given: No Travel Risk - International Travel Have you traveled outside of the country in past 3 weeks: No - Emerging Infectious Disease Are you exhibiting symptoms associated with any current EIDs: No - Past Medical History Pertinent Past Medical History: Yes Neurological History: No Pertinent History ENT History: No Pertinent History Cardiac History: No Pertinent History Respiratory History: No Pertinent History Endocrine Medical History: No Pertinent History Musculoskeletal History: No Pertinent History GI Medical History: No Pertinent History History: No Pertinent History Psycho-Social History: No Pertinent History Female Reproductive Disorders: No Pertinent History Other Medical History: Ovarian Cyst Removal (2015), Cholecystectomy (2016), rt ovary and tube removal - Past Surgical History Past Surgical History: Yes Gastrointestinal: Cholecystectomy Female Surgical History: Other Other Surgical History: rt ovarian cyst removed, rt ovary and tube removal Significant Family History: no pertinent family hx - Female History Hx Last Menstrual Period: two weeks ago Hx Now: No - Social History Smoking Status: Current every day smoker How long have you smoked: 16 yrs Exposure to second hand smoke: No Drug Use: none - Social Determinants of Health Will the patient participate in the screening: Yes Do you worry about a steady place to live?: No Do you have any problems with any of the following?: No known problems In the past 12 months,have you had to go without utilities?: No Transportation Issues: No Has anyone in your support network made you feel unsafe?: No Have you or anyone in your house had to go w/o enough food: No - Nursing Vital Signs Nursing Vital Signs: Initial Vital Signs Temperature 98.5 F 06/26/25 19:09 Pulse Rate 91 H 06/26/25 19:09 Respiratory Rate 24 06/26/25 19:09 Blood Pressure 153/76 06/26/25 19:09 O2 Sat by Pulse Oximetry 100 06/26/25 19:09 Pain Scale Pain Intensity 9 - Physical Exam General Appearance: alert Eyes, Ears, Nose, Throat Exam: moist mucous membranes Neck Exam: non-tender, supple Ankle Exam: left ankle: limited range of motion, soft tissue tenderness (ATFL), other (no drawer sign) Foot Exam: left foot: soft tissue tenderness Neuro/Tendon Exam: normal sensation, normal motor functions Mental Status Exam: alert, oriented x 3, cooperative Skin Exam: normal color, warm, dry SpO2 Interpretation: normal SpO2: 100 - Radiology Exams Left Ankle X-ray Interpretation: Interpreted by me, No Fracture, No Subluxation Ordered Tests: Active Orders 24 hr Category Date Time Status ANKLE (3 VIEWS) Stat Exams 06/26/25 19:36 Taken FOOT (MINIMUM 3 VIEWS) Stat Exams 06/26/25 19:36 Taken Medication Summary Discontinued Medications Generic Name Dose Route Start Last Admin Trade Name Freq PRN Reason Stop Dose Admin Hydrocodone Bitart/Acetaminophen 1 tab 06/26/25 19:27 06/26/25 19:32 Hydrocodone/Apap 5/325 1 Tab Tablet PO 06/26/25 19:28 1 tab STAT ONE Administration Hydrocodone Bitart/Acetaminophen Confirm 06/26/25 19:31 Hydrocodone/Apap 5/325 1 Tab Tablet Administered 06/26/25 19:32 Dose 1 tab .ROUTE .STK-MED ONE Ibuprofen 600 mg 06/26/25 19:27 06/26/25 19:31 Ibuprofen 600 Mg Tablet PO 06/26/25 19:28 600 mg STAT ONE Administration Ibuprofen Confirm 06/26/25 19:31 Ibuprofen 600 Mg Tablet Administered 06/26/25 19:32 Dose 600 mg .ROUTE .STK-MED ONE - Progress Progress Note: 06/26/25 19:56 discussed x-rays, she will be placed in a walking boot, outpatient follow up - Departure Departure Disposition: Home Clinical Impression: Left ankle sprain Qualifiers: Encounter type: initial encounter Involved ligament of ankle: anterior talofibular ligament Qualified Code(s): S93.492A - Sprain of other ligament of left ankle, initial encounter Condition: Stable Critical Care Time: No Referrals: ALEKSANDRA GUTIERREZ [Primary Care Provider, [facility]] - Follow up with PCP 6 days Instructions: Ankle sprain - ED discharge instructions Additional Instructions: ice 10-15 min, 3-4 times a day, follow up to Primary care next week Prescriptions: Ibuprofen 200 mg [Motrin 200 mg] 600 mg PO TIDP PRN #63 tablet PRN Reason: Pain Codeine Phosphate/APAP #3 [Tylenol #3 Tablet] 1 tab PO TID PRN #10 tablet PRN Reason: Pain
[2025-06-26] MEDS ORDERED: MOTRIN 600 MG ONE (19:31)
[2025-06-26] MEDS: MOTRIN 600 MG PO ONE (19:31)
[2025-06-26] MEDS ORDERED: NORCO 5/325 MG ONE (19:31)
[2025-06-26] MEDS: NORCO 5/325 MG PO ONE (19:32)
[2025-06-26 20:06] VITALS: BP 113/64; PULSE 81; RESP 17
--- NOTE | 2025-06-27 08:41 | XRAY ---
Indication: Pain following fall. Comparison: None 3 nonweightbearing views left foot demonstrates incidental tiny navicular accessory ossicle. No bony, articular, or soft tissue abnormalities.
--- NOTE | 2025-06-27 08:41 | XRAY ---
Indication: Pain following fall. Comparison: None 3 view left ankle demonstrates minimal lateral soft tissue swelling. No other bony, articular, or soft tissue abnormalities.
== END 2025-06-26 20:22 | disposition home or self-care (01) ==
LOC: ED 18:57
DX: S93.492A Sprain of other ligament of left ankle, initial encounter (principal); W01.0XXA Fall on same level from slipping, tripping and stumbling without subsequent striking against object, initial encounter; Z79.891 Long term (current) use of opiate analgesic; Z72.0 Tobacco use